=== PATIENT | male | born 1940 | race Caucasian/White ===

== ENCOUNTER → 2016-11-05 | Outpatient (REF) | payer MEDICARE, MEDICAID ==
[2016-11-05 18:21] LABS: CREATININE FOR GFR 1.34 MG/DL (0.70-1.30); GLOMERULAR FILTRATION RATE 55.5 (>42)
== END ==
LOC: M LAB REF 16:57
PROVIDERS: ATTEND Surgery Vascular Surgery
DX: Z48.812 Encounter for surgical aftercare following surgery on the circulatory system (principal)
CPT/HCPCS: 82565; 84520; G0463

== ENCOUNTER → 2016-12-15 | Outpatient (REF) | payer MEDICARE ==
[2016-12-15 18:12] LABS: BASO % 0.6 % (0.0-1.0); EOS # 0.2 K/mm3 (0.0-0.50); EOS % 3.7 % (0.0-3.0); LARGE UNSTAINED CELL # 0.1 K/mm3 (0.0-0.4); LARGE UNSTAINED CELL % 1.6 % (0.0-4.0); LYMPH # 1.1 K/mm3 (1.5-4.5); LYMPH % 20.7 % (24.0-44.0); MEAN CORPUSCULAR HEMOGLOBIN 31.9 pg (27.0-33.0); MEAN CORPUSCULAR HGB CONC 32.2 g/dl (32.0-36.5); MEAN CORPUSCULAR VOLUME 98.9 fl (80.0-96.0); MONO # 0.3 K/mm3 (0.0-0.8); MONO % 6.1 % (0.0-5.0); NEUTROPHILS # 3.3 K/mm3 (1.8-7.7); NEUTROPHILS % 67.2 % (36.0-66.0); PLATELET COUNT, AUTOMATED 215 k/mm3 (150-450); RED CELL DISTRIBUTION WIDTH 12.7 % (11.5-14.5); WHITE BLOOD COUNT 4.9 K/mm3 (4.0-10.0)
[2016-12-15 20:07] LABS: ALBUMIN 3.9 GM/DL (3.2-5.2); ALBUMIN/GLOBULIN RATIO 1.05 (1.00-1.93); ALKALINE PHOSPHATASE 71 U/L (45-117); ALT/SGPT 16 U/L (12-78); ANION GAP 7 MEQ/L (8-16); AST/SGOT 14 U/L (15-37); BILIRUBIN,TOTAL 0.5 MG/DL (0.2-1.0); BLOOD UREA NITROGEN 25 MG/DL (7-18); CALCIUM LEVEL 9.2 MG/DL (8.8-10.2); CARBON DIOXIDE LEVEL 28 MEQ/L (21-32); CHLORIDE LEVEL 101 MEQ/L (98-107); CHOLESTEROL LEVEL 138 MG/DL (<200); CREATININE FOR GFR 1.11 MG/DL (0.70-1.30); FREE T4 0.99 NG/DL (0.76-1.46); GLOMERULAR FILTRATION RATE > 60.0 (>42); GLUCOSE, FASTING 113 MG/DL (83-110); POTASSIUM SERUM 4.8 MEQ/L (3.5-5.1); SODIUM LEVEL 136 MEQ/L (136-145); TOTAL PROTEIN 7.6 GM/DL (6.4-8.2); TRIGLYCERIDES LEVEL 69 MG/DL (<150)
== END ==
LOC: M SFHCCAPE 11:42
PROVIDERS: ATTEND Nurse Practitioner
DX: E03.9 Hypothyroidism, unspecified (principal); E11.8 Type 2 diabetes mellitus with unspecified complications

== ENCOUNTER → 2017-06-10 | Outpatient (REF) | payer MEDICARE ==
[2017-06-10 19:46] LABS: ALBUMIN 3.7 GM/DL (3.2-5.2); ALBUMIN/GLOBULIN RATIO 1.03 (1.00-1.93); ALKALINE PHOSPHATASE 67 U/L (45-117); ALT/SGPT 21 U/L (12-78); ANION GAP 7 MEQ/L (8-16); AST/SGOT 11 U/L (15-37); BILIRUBIN,TOTAL 0.4 MG/DL (0.2-1.0); BLOOD UREA NITROGEN 26 MG/DL (7-18); CALCIUM LEVEL 9.2 MG/DL (8.8-10.2); CARBON DIOXIDE LEVEL 27 MEQ/L (21-32); CHLORIDE LEVEL 101 MEQ/L (98-107); CREATININE FOR GFR 1.19 MG/DL (0.70-1.30); FERRITIN 131 NG/ML (26-388); FREE T4 1.17 NG/DL (0.76-1.46); GLOMERULAR FILTRATION RATE > 60.0 (>42); GLUCOSE, FASTING 100 MG/DL (83-110); POTASSIUM SERUM 5.1 MEQ/L (3.5-5.1); SODIUM LEVEL 135 MEQ/L (136-145); TOTAL IRON BINDING CAPACITY 362 UG/DL (250-450); TOTAL PROTEIN 7.3 GM/DL (6.4-8.2)
[2017-06-10 20:00] LABS: BASO # 0.1 10^3/uL (0.0-0.2); BASO % 1.1 % (0.0-1.0); EOS # 0.2 10^3/uL (0.0-0.50); EOS % 3.4 % (0.0-3.0); IMMATURE GRANULOCYTE % 0.3 % (0-0); LYMPH # 1.5 10^3/uL (1.5-4.5); LYMPH % 23.5 % (24.0-44.0); MEAN CORPUSCULAR HEMOGLOBIN 32.6 pg (27.0-33.0); MEAN CORPUSCULAR HGB CONC 32.8 g/dl (32.0-36.5); MEAN CORPUSCULAR VOLUME 99.2 fl (80.0-96.0); MONO # 0.5 10^3/uL (0.0-0.8); MONO % 8.1 % (0.0-5.0); NEUTROPHILS # 3.9 10^3/uL (1.8-7.7); NEUTROPHILS % 63.6 % (36.0-66.0); PLATELET COUNT, AUTOMATED 219 10^3/uL (150-450); RED CELL DISTRIBUTION WIDTH 13.2 % (11.5-14.5); WHITE BLOOD COUNT 6.2 10^3/uL (4.0-10.0)
[2017-06-10 20:08] LABS: ADD MORPHOLOGY? NO
== END ==
LOC: M SFHCCAPE 10:27
PROVIDERS: ATTEND Physician Assistant
DX: Z01.818 Encounter for other preprocedural examination (principal); H26.9 Unspecified cataract; D64.9 Anemia, unspecified; Z12.5 Encounter for screening for malignant neoplasm of prostate; I10 Essential (primary) hypertension; Z79.899 Other long term (current) drug therapy
CPT/HCPCS: 80053; 81001; 82728; 83550; 84439; 84443; 85025; 87086; G0103

== ENCOUNTER → 2017-09-02 | Outpatient (REF) | payer MEDICARE ==
[2017-09-02 16:32] LABS: BASO # 0.1 10^3/uL (0.0-0.2); BASO % 1.2 % (0.0-1.0); EOS # 0.2 10^3/uL (0.0-0.50); EOS % 4.5 % (0.0-3.0); IMMATURE GRANULOCYTE % 0.6 % (0-0); LYMPH # 1.6 10^3/uL (1.5-4.5); LYMPH % 31.3 % (24.0-44.0); MEAN CORPUSCULAR HEMOGLOBIN 32.4 pg (27.0-33.0); MEAN CORPUSCULAR HGB CONC 32.6 g/dl (32.0-36.5); MEAN CORPUSCULAR VOLUME 99.2 fl (80.0-96.0); MONO # 0.4 10^3/uL (0.0-0.8); MONO % 8.2 % (0.0-5.0); NEUTROPHILS # 2.8 10^3/uL (1.8-7.7); NEUTROPHILS % 54.2 % (36.0-66.0); PLATELET COUNT, AUTOMATED 222 10^3/uL (150-450); RED CELL DISTRIBUTION WIDTH 13.2 % (11.5-14.5); WHITE BLOOD COUNT 5.1 10^3/uL (4.0-10.0)
[2017-09-02 17:05] LABS: ALBUMIN 4.1 GM/DL (3.2-5.2); ALBUMIN/GLOBULIN RATIO 1.11 (1.00-1.93); ALKALINE PHOSPHATASE 69 U/L (45-117); ALT/SGPT 17 U/L (12-78); ANION GAP 8 MEQ/L (8-16); AST/SGOT 14 U/L (7-37); BILIRUBIN,TOTAL 0.4 MG/DL (0.2-1.0); BLOOD UREA NITROGEN 21 MG/DL (7-18); CALCIUM LEVEL 8.6 MG/DL (8.8-10.2); CARBON DIOXIDE LEVEL 29 MEQ/L (21-32); CHLORIDE LEVEL 99 MEQ/L (98-107); CHOLESTEROL LEVEL 146 MG/DL (<200); CREATININE FOR GFR 1.16 MG/DL (0.70-1.30); FREE T4 1.02 NG/DL (0.76-1.46); GLOMERULAR FILTRATION RATE > 60.0 (>42); GLUCOSE, FASTING 99 MG/DL (83-110); POTASSIUM SERUM 4.7 MEQ/L (3.5-5.1); SODIUM LEVEL 136 MEQ/L (136-145); TOTAL PROTEIN 7.8 GM/DL (6.4-8.2); TRIGLYCERIDES LEVEL 165 MG/DL (<150)
== END ==
LOC: M SFHCCAPE 10:37
PROVIDERS: ATTEND Physician Assistant
DX: I10 Essential (primary) hypertension (principal); E03.9 Hypothyroidism, unspecified; E11.8 Type 2 diabetes mellitus with unspecified complications; E78.5 Hyperlipidemia, unspecified; R97.20 Elevated prostate specific antigen [PSA]

== ENCOUNTER → 2017-09-09 | Outpatient (REF) | payer MEDICARE | LOC: M SFHCCAPE 16:22 | DX: E11.8 Type 2 diabetes mellitus with unspecified complications (principal) | CPT/HCPCS: 82043 ==

== ENCOUNTER → 2018-01-04 | Outpatient (REF) | payer MEDICARE ==
[2018-01-04 16:30] LABS: BASO # 0.1 10^3/uL (0.0-0.2); BASO % 0.8 % (0.0-1.0); EOS # 0.2 10^3/uL (0.0-0.50); HEMATOCRIT 39.9 % (42.0-52.0); HEMOGLOBIN 13.3 g/dl (13.5-17.5); IMMATURE GRANULOCYTE % 0.2 % (0-3.0); LYMPH # 1.5 10^3/uL (1.5-4.5); LYMPH % 22.2 % (24.0-44.0); MEAN CORPUSCULAR HEMOGLOBIN 32.1 pg (27.0-33.0); MEAN CORPUSCULAR HGB CONC 33.3 g/dl (32.0-36.5); MEAN CORPUSCULAR VOLUME 96.4 fl (80.0-96.0); MONO # 0.6 10^3/uL (0.0-0.8); MONO % 8.5 % (0.0-5.0); NEUTROPHILS # 4.3 10^3/uL (1.8-7.7); NEUTROPHILS % 65.3 % (36.0-66.0); PLATELET COUNT, AUTOMATED 211 10^3/uL (150-450); RED BLOOD COUNT 4.14 10^6/uL (4.30-6.10); RED CELL DISTRIBUTION WIDTH 13.2 % (11.5-14.5); WHITE BLOOD COUNT 6.6 10^3/uL (4.0-10.0)
[2018-01-04 17:17] LABS: ESTIMATED AVERAGE GLUCOSE 117 MG/DL (60-110); HEMOGLOBIN A1c 5.7 %
[2018-01-04 17:24] LABS: ALBUMIN 4.1 GM/DL (3.2-5.2); ALBUMIN/GLOBULIN RATIO 1.03 (1.00-1.93); ALKALINE PHOSPHATASE 77 U/L (45-117); ALT/SGPT 17 U/L (12-78); ANION GAP 8 MEQ/L (8-16); AST/SGOT 16 U/L (7-37); BILIRUBIN,TOTAL 0.5 MG/DL (0.2-1.0); BLOOD UREA NITROGEN 19 MG/DL (7-18); CALCIUM LEVEL 9.1 MG/DL (8.8-10.2); CARBON DIOXIDE LEVEL 29 MEQ/L (21-32); CHLORIDE LEVEL 100 MEQ/L (98-107); CREATININE FOR GFR 1.11 MG/DL (0.70-1.30); FREE T4 1.08 NG/DL (0.76-1.46); GLOMERULAR FILTRATION RATE > 60.0 (>42); GLUCOSE, FASTING 109 MG/DL (70-100); POTASSIUM SERUM 4.7 MEQ/L (3.5-5.1); PROSTATIC SPECIFIC AG MONITOR 6.44 NG/ML (< 4.0); SODIUM LEVEL 137 MEQ/L (136-145); TOTAL PROTEIN 8.1 GM/DL (6.4-8.2)
== END ==
LOC: M SFHCCAPE 10:24
DX: I10 Essential (primary) hypertension (principal); E03.9 Hypothyroidism, unspecified; E11.8 Type 2 diabetes mellitus with unspecified complications; R97.20 Elevated prostate specific antigen [PSA]
CPT/HCPCS: 84443

== ENCOUNTER → 2018-01-07 | Outpatient (REF) | payer MEDICARE ==
[2018-01-08 12:39] LABS: MAU/CREAT RATIO 257.9 MCG/MG (0.0-30.0)
== END ==
LOC: M SFHCCAPE 16:25
DX: E11.8 Type 2 diabetes mellitus with unspecified complications (principal)
CPT/HCPCS: 82043

== ENCOUNTER → 2019-02-01 | Outpatient (REF) | payer MEDICARE ==
[2019-02-01 17:20] LABS: ALBUMIN 3.8 GM/DL (3.2-5.2); ALT/SGPT 17 U/L (12-78); BILIRUBIN,TOTAL 0.5 MG/DL (0.2-1.0); BLOOD UREA NITROGEN 19 MG/DL (7-18); CALCIUM LEVEL 9.1 MG/DL (8.8-10.2); CARBON DIOXIDE LEVEL 27 MEQ/L (21-32); CHLORIDE LEVEL 98 MEQ/L (98-107); CHOLESTEROL LEVEL 180 MG/DL (<200); CHOLESTEROL RISK RATIO 3.461 (<5); CREATININE FOR GFR 1.17 MG/DL (0.70-1.30); FREE T4 1.03 NG/DL (0.76-1.46); GLOMERULAR FILTRATION RATE > 60.0 (>42); GLUCOSE, FASTING 115 MG/DL (70-100); HDL CHOLESTEROL 52 MG/DL (>40); LDL CHOLESTEROL 106 MG/DL (<100); NON-HDL-C 128 MG/DL; POTASSIUM SERUM 4.7 MEQ/L (3.5-5.1); PROSTATIC SPECIFIC AG MONITOR 7.59 NG/ML (< 4.00); SODIUM LEVEL 135 MEQ/L (136-145); TOTAL PROTEIN 7.4 GM/DL (6.4-8.2); TRIGLYCERIDES LEVEL 109 MG/DL (<150)
[2019-02-01 17:36] LABS: BASO # 0.1 10^3/uL (0.0-0.2); EOS # 0.2 10^3/uL (0.0-0.50); EOS % 3.5 % (0.0-3.0); HEMATOCRIT 43.8 % (42.0-52.0); HEMOGLOBIN 14.4 g/dl (13.5-17.5); LYMPH # 1.3 10^3/uL (1.5-4.5); LYMPH % 25.6 % (24.0-44.0); MEAN CORPUSCULAR HEMOGLOBIN 33.2 pg (27.0-33.0); MEAN CORPUSCULAR HGB CONC 32.9 g/dl (32.0-36.5); MEAN CORPUSCULAR VOLUME 100.9 fl (80.0-96.0); MONO # 0.5 10^3/uL (0.0-0.8); MONO % 9.6 % (0.0-5.0); NEUTROPHILS # 3.1 10^3/uL (1.8-7.7); NEUTROPHILS % 59.9 % (36.0-66.0); PLATELET COUNT, AUTOMATED 216 10^3/uL (150-450); RED BLOOD COUNT 4.34 10^6/uL (4.30-6.10); WHITE BLOOD COUNT 5.2 10^3/uL (4.0-10.0)
[2019-02-01 20:18] LABS: HEMOGLOBIN A1c 5.5 %
== END ==
LOC: M SFHCCAPE 10:36
PROVIDERS: ATTEND Physician Assistant
DX: E78.5 Hyperlipidemia, unspecified (principal); E11.8 Type 2 diabetes mellitus with unspecified complications; R97.20 Elevated prostate specific antigen [PSA]

== ENCOUNTER → 2019-02-03 | Outpatient (REF) | payer MEDICARE ==
[2019-02-03 17:22] LABS: CREATININE, URINE 95.1 MG/DL; MAU/CREAT RATIO 292.3 MCG/MG (0.0-30.0)
== END ==
LOC: M SFHCCAPE 10:45
PROVIDERS: ATTEND Physician Assistant
DX: E11.8 Type 2 diabetes mellitus with unspecified complications (principal)

== ENCOUNTER → 2020-10-24 | Outpatient (REF) | payer MEDICARE ==
[2020-10-24 16:31] LABS: BASO # 0.1 10^3/uL (0.0-0.2); EOS # 0.3 10^3/uL (0.0-0.5); EOS % 4.7 % (0.0-3.0); HEMATOCRIT 42.7 % (42.0-52.0); HEMOGLOBIN 13.9 g/dl (13.5-17.5); LYMPH # 1.3 10^3/uL (1.5-5.0); LYMPH % 22.7 % (24.0-44.0); MEAN CORPUSCULAR HEMOGLOBIN 32.6 pg (27.0-33.0); MEAN CORPUSCULAR HGB CONC 32.6 g/dl (32.0-36.5); MONO # 0.5 10^3/uL (0.0-0.8); MONO % 8.4 % (0.0-5.0); NEUTROPHILS # 3.6 10^3/uL (1.5-8.5); NEUTROPHILS % 62.9 % (36.0-66.0); PLATELET COUNT, AUTOMATED 211 10^3/uL (150-450); RED BLOOD COUNT 4.27 10^6/uL (4.30-6.10); WHITE BLOOD COUNT 5.7 10^3/uL (4.0-10.0)
[2020-10-24 16:49] LABS: ALBUMIN 3.5 GM/DL (3.2-5.2); ALT/SGPT 14 U/L (12-78); BILIRUBIN,TOTAL 0.5 MG/DL (0.2-1.0); BLOOD UREA NITROGEN 26 MG/DL (7-18); CALCIUM LEVEL 9.2 MG/DL (8.8-10.2); CARBON DIOXIDE LEVEL 29 MEQ/L (21-32); CHLORIDE LEVEL 103 MEQ/L (98-107); CHOLESTEROL LEVEL 108 MG/DL (<200); CHOLESTEROL RISK RATIO 2.769 (<5); CREATININE FOR GFR 1.23 MG/DL (0.70-1.30); FREE T4 1.07 NG/DL (0.76-1.46); GLOMERULAR FILTRATION RATE > 60.0 (>42); GLUCOSE, FASTING 98 MG/DL (70-100); HDL CHOLESTEROL 39 MG/DL (>40); LDL CHOLESTEROL 45 MG/DL (<100); NON-HDL-C 69 MG/DL; POTASSIUM SERUM 4.2 MEQ/L (3.5-5.1); PROSTATIC SPECIFIC AG MONITOR 7.54 NG/ML (< 4.00); SODIUM LEVEL 140 MEQ/L (136-145); THYROID STIMULATING HORMONE 0.528 uIU/ML (0.358-3.740); TOTAL PROTEIN 7.8 GM/DL (6.4-8.2); TRIGLYCERIDES LEVEL 121 MG/DL (<150)
[2020-10-24 16:54] LABS: FOLATE 4.9 NG/ML; VITAMIN B12 LEVEL 516 PG/ML
[2020-10-24 17:09] LABS: MALB URINE SIEMENS 62.6 MG/L; MAU/CREAT RATIO 39.1 MCG/MG (0.0-30.0)
[2020-10-24 17:51] LABS: HEMOGLOBIN A1c 5.3 %
== END ==
LOC: M LAB REF 15:56
PROVIDERS: ATTEND Physician Assistant
DX: E11.8 Type 2 diabetes mellitus with unspecified complications (principal); I10 Essential (primary) hypertension; E78.5 Hyperlipidemia, unspecified; E03.9 Hypothyroidism, unspecified; R97.20 Elevated prostate specific antigen [PSA]

== ENCOUNTER 2020-11-30 13:30 | Inpatient (IN) | payer MEDICARE ==
[~2020-11-30] VITALS: Ht 185.4 cm; Wt 97.1 kg
--- NOTE | 2020-11-30 14:21 | REP ---
INDICATION: Altered Mental Status. COMPARISON: No comparison study. TECHNIQUE: Portable upright AP chest radiographs. Two views.. FINDINGS: A bipolar pacemaker is seen in the right heart view of the left side. There is a small right pleural effusion with pleural thickening along the right lateral chest wall and blunting of the pleural angle. There is some fissural thickening on the right. Pleural angle on the left is sharp.. Pulmonary vasculature is somewhat cephalized. A bipolar pacemaker is seen in the right heart view of the left side. Heart size is borderline. There are degenerative changes in the thoracic spine. No infiltrate is seen. IMPRESSION: Right pleural effusion cardiomegaly with pacemaker. Vascular cephalization. No evidence of pulmonary edema or infiltrate.. <Electronically signed by Bill Stewart > 11/30/20 [id number]
[2020-11-30 15:29] LABS: BASO % 0.1 % (0.0-1.0); HEMOGLOBIN 12.2 g/dl (13.5-17.5); LYMPH # 0.7 10^3/uL (1.5-5.0); LYMPH % 5.3 % (24.0-44.0); MEAN CORPUSCULAR HEMOGLOBIN 31.1 pg (27.0-33.0); MEAN CORPUSCULAR HGB CONC 32.1 g/dl (32.0-36.5); MEAN CORPUSCULAR VOLUME 96.9 fl (80.0-96.0); MONO % 7.4 % (2.0-8.0); NEUTROPHILS # 11.6 10^3/uL (1.5-8.5); NEUTROPHILS % 86.2 % (36.0-66.0); PLATELET COUNT, AUTOMATED 329 10^3/uL (150-450); RED BLOOD COUNT 3.92 10^6/uL (4.30-6.10); WHITE BLOOD COUNT 13.5 10^3/uL (4.0-10.0)
[2020-11-30 16:02] LABS: ALBUMIN 2.5 GM/DL (3.2-5.2); ALT/SGPT 17 U/L (12-78); BILIRUBIN,DIRECT 0.5 MG/DL (0.0-0.2); BILIRUBIN,TOTAL 0.8 MG/DL (0.2-1.0); BLOOD UREA NITROGEN 35 MG/DL (7-18); CALCIUM LEVEL 8.4 MG/DL (8.8-10.2); CARBON DIOXIDE LEVEL 27 MEQ/L (21-32); CHLORIDE LEVEL 104 MEQ/L (98-107); CK-MB VALUE MASS 1.3 NG/ML (<3.6); CPK CREATINE PHOSPHOKINASE 623 U/L (39-308); CREATININE FOR GFR 1.51 MG/DL (0.70-1.30); ETHYL ALCOHOL (ETHANOL) < 0.003 % (0.000-0.010); GLOMERULAR FILTRATION RATE 47.8 (>42); GLUCOSE, FASTING 205 MG/DL (70-100); MB/CK RELATIVE INDEX 0.21 (< OR =4); POTASSIUM SERUM 4.4 MEQ/L (3.5-5.1); SODIUM LEVEL 137 MEQ/L (136-145); THYROID STIMULATING HORMONE 0.689 uIU/ML (0.358-3.740); TOTAL PROTEIN 7.4 GM/DL (6.4-8.2); TROPONIN I < 0.02 NG/ML (< 0.10)
[2020-11-30] MEDS ORDERED: GABA-282 PO (16:59)
[2020-11-30] MEDS ORDERED: TAMS1CAP17 PO (16:59)
[2020-11-30] MEDS ORDERED: LISI10TA22 PO (16:59)
[2020-11-30] MEDS ORDERED: COMB0.2S OS (16:59)
[2020-11-30] MEDS ORDERED: XARE20TA PO (16:59)
[2020-11-30] MEDS ORDERED: METF500T13 PO (16:59)
[2020-11-30] MEDS ORDERED: AMLO1TAB25 PO (16:59)
[2020-11-30] MEDS ORDERED: SIMV10TA21 PO (16:59)
[2020-11-30] MEDS ORDERED: LEVO88TA3 PO (16:59)
[2020-11-30] MEDS ORDERED: NS 1,000 ML IV ONE (17:05)
[2020-11-30 17:16] LABS: AMPHETAMINES LEVEL URINE NEGATIVE (NEGATIVE); BARBITURATES URINE NEGATIVE (NEGATIVE); BENZODIAZEPINES URINE NEGATIVE (NEGATIVE); CANNABINOIDS URINE NEGATIVE (NEGATIVE); COCAINE METABOLITE URINE NEGATIVE (NEGATIVE); METHADONE URINE NEGATIVE (NEGATIVE); OPIATES URINE NEGATIVE (NEGATIVE); PHENCYCLIDINE URINE NEGATIVE (NEGATIVE)
[2020-11-30 18:16] LABS: RSV AMPLIFICATION NEGATIVE (NEGATIVE)
--- NOTE | 2020-11-30 18:26 | REPVR ---
PROCEDURE INFORMATION: Exam: CT Abdomen And Pelvis Without Contrast Exam date and time: 11/30/2020 5:30 PM Age: 80 years old Clinical indication: Other: Obstruction TECHNIQUE: Imaging protocol: Computed tomography of the abdomen and pelvis without contrast. Radiation optimization: All CT scans at this facility use at least one of these dose optimization techniques: automated exposure control; mA and/or kV adjustment per patient size (includes targeted exams where dose is matched to clinical indication); or iterative reconstruction. COMPARISON: No relevant prior studies available. FINDINGS: Pleural spaces: Small to moderate right pleural effusion. Compressive atelectasis right lung base. Small loculated pleural effusion left lung base. Liver: Normal. No mass. Gallbladder and bile ducts: Normal. No calcified stones. No ductal dilation. Pancreas: Normal. No ductal dilation. Spleen: The spleen demonstrates punctate calcifications, consistent with remote granulomatous organism exposure. Adrenal glands: There is bilateral adrenal hyperplasia. Kidneys and ureters: Bilateral nonobstructive renal calculi. Stomach and bowel: There is increased feces throughout the colon consistent with constipation. Moderate diverticulosis is present in the distal colon. No diverticulitis. Appendix: No evidence of appendicitis. Intraperitoneal space: Unremarkable. No free air. No significant fluid collection. Vasculature: 3.4 cm infrarenal abdominal aortic aneurysm tapers before the bifurcation. There is severe atherosclerotic calcification of the coronary arteries. Lymph nodes: Unremarkable. No enlarged lymph nodes. Urinary bladder: Unremarkable as visualized. Reproductive: Unremarkable as visualized. Bones/joints: Severe central spinal stenosis L2-L3, L3-L4, L4-L5 and moderate to severe central spinal stenosis L5-S1. Status post total hip replacement on the left. Soft tissues: Bilateral inguinal hernias, right greater than left. No incarceration. Other findings: Osteoporosis. IMPRESSION: 1. 3.4 cm infrarenal abdominal aortic aneurysm tapers before the bifurcation. 2. Bilateral nonobstructive renal calculi. 3. There is bilateral adrenal hyperplasia. 4. Bilateral inguinal hernias, right greater than left. No incarceration. 5. There is increased feces throughout the colon consistent with constipation. 6. Moderate diverticulosis is present in the distal colon. No diverticulitis. Electronically signed by: Herman Zhao On 11/30/2020 18:26:09 PM
--- NOTE | 2020-11-30 18:54 | REP ---
INDICATION: edema COMPARISON: None. TECHNIQUE: Duplex ultrasound of the lower extremity veins bilaterally. FINDINGS: The deep veins demonstrate normal compression, normal Doppler color flow and normal Doppler waveforms with respiration augmentation from the popliteal veins to the common femoral veins bilaterally. However, there are multiple areas of intimal calcification throughout the the right deep venous system compatible with chronic nonocclusive thrombus. Similarly, there are focal areas of intimal calcification throughout the deep venous system on the left compatible with chronic nonocclusive thrombus. Also, there is focal intraluminal echogenicity in the mid left femoral vein compatible with chronic nonocclusive organizing thrombus. IMPRESSION: There are findings compatible with chronic bilateral nonocclusive thrombus as described. There is no occlusive thrombus on the right or the left. <Electronically signed by Kirby Abel > 11/30/20 [id number]
[2020-11-30] MEDS ORDERED: MOM 30ML SUSPENSION UDC PO PRN (19:10)
[2020-11-30] MEDS ORDERED: ACETAMINOPHEN TAB 650MG DOSE (2X325MG) PO PRN (19:10)
[2020-11-30] MEDS ORDERED: GLUCOSE 4GM CHEW TABLET PO PRN (19:10)
[2020-11-30] MEDS ORDERED: GLUCAGON INJ 1MG VIAL SC PRN (19:10)
[2020-11-30] MEDS ORDERED: DEXTROSE 50% 50 ML SYRINGE IV PRN (19:10)
[2020-11-30] MEDS ORDERED: MAALOX 30 ML SUSP *UDC PO PRN (19:10)
--- NOTE | 2020-11-30 19:33 | HPEPDOC ---
[facility] Medical History & Physical Date of Admission Nov 30, 2020 Date of Service: Nov 30, 2020 History and Physical CHIEF COMPLAINT: failure to thrive HISTORY OF PRESENT ILLNESS: 80 yo M with a hx of COPD, HTN, DM2, Afib (s/p pacemaker 2015) on xarelto neuropathy, PAD (s/p R fem/pop bypass 2015), skin cancer, brought to [facility] by EMS, after his family became concerned over his overall state of health and significant failure to thrive. He was found by family to be sitting in his armchair, disheveled, and lethargic. Patient's sister is Patt Ordaz ([phone]), lives in [place], states that he has been living in this state for over 5 years, has refused to see physicians, comply with medical management. His living situation declined further after the of his son at age 47. She states that he has made several comments about not wanting to be alive any more. Patient denies SI, he has no plan and states that he has his dog to take care of which keeps him going. He receives meals on wheels, and has someone come feed his dog twice per day. Patient has had poor PO intake for months. No BM for over 2 months. He denies CP, SOB, palpitations, n/v/d, fevers or chills. He repots severe low back on leaning forward, without radiation down to legs. He is unable to walk, and sits in his chair daily, and uses a bedpan. Significant doubts about medication compliance. Vitals reviewed. HR 83. RR 18. BP 134/73. Pulse ox 97%.Lab work was reviewed. WBC 13.5. Neutrophil percentage 86.2. Hgb 12.2. Hct 38.0. Na 137. K 4.4. BUN 35. CR 1.51. Fasting glucose 205. Lactic acid 2.8 down to 1.6 after fluid bolus. Ammonia < 10. CK 623. UA positive for trace leuk esterase, pyuria. PAST MEDICAL HISTORY: HYPERTENSION GLAUCOMA COPD DIABETES NEUROPATHY DUAL CHAMBER PACEMAKER IMPLANTATION 03/2016-[facility] C[facility] HX OF SKIN CANCER HYPERLIPIDEMIA ATRIAL FIBRILLATION on Xarelto CATARACTS-DR. MARK CHICAS PERIPHERAL VASCULAR DISEASE PAST SURGICAL HISTORY: LEFT HIP REPLACEMENT 2004 RIGHT FEM POP BYPASS FOR PAD DR CASTILLO NUÑEZ 2015 [address] SECOND TOE REMOVAL DR CASTILLO NUÑEZ 01/2016 PACEMAKER 04/03/16 ARTERIOGRAM 2017 MELANOMA EXCISION LEFT LATERAL FOREHEAD 07/27/17 SOCIAL HISTORY: Lives alone. Sister very concerned. He has sat and slept in an arch for years. Unable to care for self. Former smoker 30 pack year hx. Denies etoh use. Denies illicits FAMILY HISTORY: Son at agr 47, unknown cause ALLERGIES: Please see below. REVIEW OF SYSTEMS: 10 point ROS completed, relevant findings are noted in HPI. HOME MEDICATIONS: Please see below. PHYSICAL EXAMINATION: VITAL SIGNS: please see below General: NAD, comfortable HEENT: PERRLA, EOMI, sclerae clear Neck: supple, normal ROM, no JVD Respiratory: bilateral wheeze on auscultation, no rales, no crackles CVS: RRR, normal S1, S2, no murmurs Abdo: soft, no masses, no hepatosplenomegaly, BS+, no rebound tenderness ALIVIA: large amount of stool in rectal vault, voluntary anal tone present but weakened. Normal sensation, no saddle anesthesia. No blood in rectum. No hemorrhoids seen. Extremities: bilateral lower extremity edema, severe xerosis and keratosis, particularly affecting distal feet. R 2nd toe amputation. Concern for dry gangrene. Back: deep tissue injury noted on sacrum, with a central stage 1 ulcer overlying coccyx. MSK: no joint deformities, normal ROM Neuro: no focal neuro deficits, moving all 4 extremities, CN2-12 intact. Psych: calm, cooperative, AAO x 3 LABORATORY DATA: See below. IMAGING: Bilateral Lower Extremity Venous Duplex (11/30/20): There are findings compatible with chronic bilateral nonocclusive thrombus as described. There is no occlusive thrombus on the right or the left. Renal US (11/30/20): 1. Small nonshadowing echogenic focus lower pole of the right kidney measures 5 mm possibly representing a nonobstructive calculus. Finding consistent with findings demonstrated on prior CT abdomen pelvis demonstrating bilateral nonobstructive renal calculi. 2. Otherwise unremarkable CT abdomen pelvis wo contrast (11/30/20): 1. 3.4 cm infrarenal abdominal aortic aneurysm tapers before the bifurcation. 2. Bilateral nonobstructive renal calculi. 3. There is bilateral adrenal hyperplasia. 4. Bilateral inguinal hernias, right greater than left. No incarceration. 5. There is increased feces throughout the colon consistent with constipation. 6. Moderate diverticulosis is present in the distal colon. No diverticulitis. CXR (11/30/20): A bipolar pacemaker is seen in the right heart view of the left side. There is a small right pleural effusion with pleural thickening along the right lateral c hest wall and blunting of the pleural angle. There is some fissural thickening on the right. Pleural angle on the left is sharp.. Pulmonary vasculature is somewhat cephalized. A bipolar pacemaker is seen in the right heart view of the left side. Heart size is borderline. There are degenerative changes in the thoracic spine. No infiltrate is seen. IMPRESSION: Right pleural effusion cardiomegaly with pacemaker. Vascular cephalization. No evidence of pulmonary edema or infiltrate. MICROBIOLOGY: Please see below. ASSESSMENT: 80 yo M with a hx of COPD, HTN, DM2, Afib (s/p pacemaker 2015) on xarelto neuropathy, PAD (s/p R fem/pop bypass 2015), skin cancer, brought to [facility] by EMS, after his family became concerned over his overall state of health and significant failure to thrive. Admitted for management of CELESTINO, constipation, and failure to thrive. . PLAN: Bilateral Chronic DVTs, non occlusive - takes xarelto 20 mg daily - concern about medication compliance - resume xarelto R pleural effusion - possibly related to underlying CHF - obtain 2D echo - check CT chest wo contrast Bilateral LE edema, R > L - in context of chronic DVTs - check 2D echo Hypoxia 2/2 COPD exacerbation vs PE vs CHF - not on Home O2 - inhalers. 2D Echo. AC xarelto - maintain O2 > 90% - given bilateral non oclussive DVTs, risk of PE is high - given CELESTINO on possible CKD, precludes CT Angiogram - resume Xarelto Afib s/p pacemaker - AC with xarelto 20 mg daily - paced rhythm, rate controlled - check 2D echo AAA (3.4 cm), infrarenal - refer to vascular surgery for monitoring CELESTINO/Rhabdomyolysis - CK 623 - Renal US reviewed. - c/w gentle IVF at 80 cc/hr - trend CK Bilateral adrenal hyperplasia - check renin, aldosterone DM2 with neuropathy - ISS, AC and HS - CC diet - check a1c, lipid panel - hold gabapentin until CELESTINO improves - c/w simvastatin 10 mg daily COPD in mild acute exacerbation - wheezing on exam, hypoxic to 3L - per PCP notes, has been having difficulty with inhaler compliance - albuterol - proair - symbicort PAD with severe xerosis and keratosis of bilateral legs - podiatry eval, consult placed with Dr. Muñoz Constipation - significant stool burden on CT imaging, and on ALIVIA - miralax daily - dulcolax suppository - soap suds enema Chronic back pain/Severe spinal stenosis - 04/23 back pain, severely impeding mobility HTN - home meds: amlodipine 10 mg, lisinopril 10 mg daily - hold lisinopril 2/ CELESTINO - resume amlodipine, monitor BP Hypothyroidism - takes levothyroxine 88 mc daily BPH - c/w flomax DVT ppx: xarelto Dispo: pending clinical improvement. PFS consulted for likely need of placement. Vital Signs Vital Signs Date Time Temp Pulse Resp B/P (MAP) Pulse Ox O2 Delivery O2 Flow Rate FiO2 11/30/20 17:02 4.0 11/30/20 16:30 61 20 97 Room Air 11/30/20 15:00 151/77 (101) Laboratory Data Labs 24H Laboratory Tests 2 11/30/20 14:03: Anion Gap 6L, Glomerular Filtration Rate 47.8, Lactic Acid Level 2.8*H, Calcium Level 8.4L, Total Bilirubin 0.8, Direct Bilirubin 0.5H, Aspartate Amino Transf (AST/SGOT) 22, Alanine Aminotransferase (ALT/SGPT) 17, Alkaline Phosphatase 94, Total Creatine Kinase 623H, Creatine Kinase MB 1.3, Creatine Kinase MB Relative Index 0.21, Troponin I < 0.02, Total Protein 7.4, Albumin 2.5L, Albumin/Globulin Ratio 0.5, Thyroid Stimulating Hormone (TSH) 0.689, Urine Opiates Screen NEGATIVE, Urine Methadone Screen NEGATIVE, Urine Barbiturates Screen NEGATIVE, Urine Phencyclidine Screen NEGATIVE, Urine Amphetamines Screen NEGATIVE, Urine Benzodiazepines Screen NEGATIVE, Urine Cocaine Metabolite Screen NEGATIVE, Urine Cannabinoids Screen NEGATIVE, Ethyl Alcohol Level < 0.003 11/30/20 14:04: Immature Granulocyte % (Auto) 1.0, Neutrophils (%) (Auto) 86.2H, Lymphocytes (%) (Auto) 5.3L, Monocytes (%) (Auto) 7.4, Eosinophils (%) (Auto) 0.0, Basophils (%) (Auto) 0.1, Neutrophils # (Auto) 11.6H, Lymphocytes # (Auto) 0.7L, Monocytes # (Auto) 1.0H, Eosinophils # (Auto) 0.0, Basophils # (Auto) 0.0, Nucleated Red Blood Cells % (auto) 0.0, Urine Color EDDY, Urine Appearance CLOUDYH, Urine pH 5.0, Urine Specific [place] 1.021, Urine Protein 2+H, Urine Glucose (UA) 1+H, Urine Ketones NEGATIVE, Urine Blood 1+H, Urine Nitrite NEGATIVE, Urine Bilirubin 1+H, Urine Urobilinogen 4.0H, Urine Leukocyte Esterase TRACEH, Urine WBC (Auto) 6H, Urine RBC (Auto) 3, Urine Hyaline Casts (Auto) 0, Urine Bacteria (Auto) 1+H, Urine Squamous Epithelial Cells 1, Urine Amorphous Sediment SMALLH, Urine Mucus (Auto) SMALL, Urine Sperm (Auto) , Ammonia < 10 11/30/20 17:31: Coronavirus (COVID-19)(PCR) NEGATIVE, Influenza Type A (RT-PCR) NEGATIVE, Influenza Type B (RT-PCR) NEGATIVE, Respiratory Syncytial Virus (PCR) NEGATIVE CBC/BMP Laboratory Tests 11/30/20 14:03 11/30/20 14:04 Microbiology Microbiology 11/30/20 Urine Culture, Received Pending 11/30/20 Blood Culture, Received Pending Home Medications Scheduled Amlodipine Besylate (Amlodipine Besylate) 10 Mg Tablet, 10 MG PO DAILY Gabapentin (Gabapentin) 300 Mg Capsule, 300 MG PO BID Levothyroxine Sodium (Levothyroxine Sodium) 88 Mcg Tablet, 88 MCG PO DAILY Lisinopril (Lisinopril) 10 Mg Tablet, 30 MG PO DAILY Metformin HCl (Metformin HCl) 500 Mg Tablet, 500 MG PO BIDWM Rivaroxaban (Xarelto) 20 Mg Tablet, 20 MG PO DAILY Simvastatin (Simvastatin) 10 Mg Tablet, 10 MG PO QHS Tamsulosin Hcl (Tamsulosin HCl) 0.4 Mg Capsule, 0.4 MG PO DAILY Allergies Coded Allergies: Sulfa (Sulfonamide Antibiotics) (Verified Allergy, Unknown, 11/30/20) A-FIB/CHADSVASC A-FIB History Current/History of A-Fib/PAF?: No Current PO Anticoag Therapy: No CHAITANYA PEDERSON MD Nov 30, 2020 19:33
--- NOTE | 2020-11-30 20:01 | REPVR ---
PROCEDURE INFORMATION: Exam: US Retroperitoneal Limited, Kidneys Exam date and time: 11/30/2020 7:56 PM Age: 80 years old Clinical indication: Abnormal findings; Abnormal lab test; Abnormal kidney function lab tests; Additional info: Efraín TECHNIQUE: Imaging protocol: Real-time ultrasound of the retroperitoneum with image documentation. Examination was focused on the kidneys. COMPARISON: CT ABD PELVIS W/O CONTRAST 11/30/2020 5:39 PM FINDINGS: Right kidney: Right kidney measures 12.5 x 5 x 6.3 cm. Small nonshadowing echogenic focus lower pole of the right kidney measures 5 mm possibly representing a nonobstructive calculus. Left kidney: Left kidney measures 12.2 x 5 x 6.7 cm. Bladder: Bladder unremarkable. No ureteral jets demonstrated. IMPRESSION: 1. Small nonshadowing echogenic focus lower pole of the right kidney measures 5 mm possibly representing a nonobstructive calculus. Finding consistent with findings demonstrated on prior CT abdomen pelvis demonstrating bilateral nonobstructive renal calculi. 2. Otherwise unremarkable. Electronically signed by: Herman Zhao On 11/30/2020 20:01:34 PM
[2020-11-30] MEDS: DOCUSATE SODIUM 100MG CAPSULE PO SCH (21:00)
[2020-11-30] MEDS: HumaLOG INSULIN (NovoLOG) PER UNIT SC SCH (21:00)
[2020-11-30 22:00] VITALS: BP 165/72
[2020-12-01] MEDS ORDERED: UNRESOLVED CLARIFICATION ENTRY XX SCH (00:01)
[2020-12-01] MEDS: LEVOTHYROXINE 88MCG TABLET (0.088 MG) PO SCH (05:40)
[2020-12-01 06:00] VITALS: BP 134/63
[2020-12-01 07:05] LABS: BASO % 0.2 % (0.0-1.0); EOS % 0.3 % (0.0-3.0); HEMATOCRIT 32.1 % (42.0-52.0); HEMOGLOBIN 10.3 g/dl (13.5-17.5); LYMPH # 0.9 10^3/uL (1.5-5.0); LYMPH % 7.7 % (24.0-44.0); MEAN CORPUSCULAR HEMOGLOBIN 31.2 pg (27.0-33.0); MEAN CORPUSCULAR HGB CONC 32.1 g/dl (32.0-36.5); MEAN CORPUSCULAR VOLUME 97.3 fl (80.0-96.0); MONO # 0.8 10^3/uL (0.0-0.8); NEUTROPHILS # 9.9 10^3/uL (1.5-8.5); PLATELET COUNT, AUTOMATED 293 10^3/uL (150-450); WHITE BLOOD COUNT 11.8 10^3/uL (4.0-10.0)
[2020-12-01 07:15] LABS: HEMOGLOBIN A1c 5.9 %
[2020-12-01 07:22] LABS: ALT/SGPT 16 U/L (12-78); BILIRUBIN,TOTAL 0.6 MG/DL (0.2-1.0); BLOOD UREA NITROGEN 27 MG/DL (7-18); CALCIUM LEVEL 8.2 MG/DL (8.8-10.2); CARBON DIOXIDE LEVEL 27 MEQ/L (21-32); CHLORIDE LEVEL 106 MEQ/L (98-107); CREATININE FOR GFR 1.04 MG/DL (0.70-1.30); GLOMERULAR FILTRATION RATE > 60.0 (>42); GLUCOSE, FASTING 154 MG/DL (70-100); MAGNESIUM LEVEL 1.9 MG/DL (1.8-2.4); POTASSIUM SERUM 4.4 MEQ/L (3.5-5.1); SODIUM LEVEL 139 MEQ/L (136-145); TOTAL PROTEIN 6.3 GM/DL (6.4-8.2)
[2020-12-01] MEDS: HumaLOG INSULIN (NovoLOG) PER UNIT SC SCH ×4 (07:30→21:00)
[2020-12-01] MEDS: TAMSULOSIN 0.4 MG CAP PO SCH (08:45)
[2020-12-01] MEDS: MIRALAX *UNIT DOSE* 17GM PACKET PO SCH (08:45)
[2020-12-01] MEDS: predniSONE 20 MG TAB PO SCH (08:45)
[2020-12-01] MEDS: DOCUSATE SODIUM 100MG CAPSULE PO SCH ×2 (08:46→21:00)
[2020-12-01] MEDS: BISACODYL 10 MG SUPP PR SCH ×3 (08:46→21:00)
--- NOTE | 2020-12-01 09:30 | REP ---
INDICATION: ulceration COMPARISON: Right foot series dated 10/25/2015. TECHNIQUE: Four views of each foot. FINDINGS: Right foot: There is demineralization. There has been amputation of the 2nd digit at the base of the proximal phalange as an interval change. 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 There is advanced great toe/sesamoid osteoarthritis as previously. No acute fracture or dislocation. No lytic, blastic or destructive changes. There is a marked soft tissue edema over the dorsum as an interval change. There are surgical clips in the soft tissues over the dorsum as an interval change. There are calcaneal plantar and Achilles spurs, unchanged. Left foot: No comparison. There is no soft tissue edema. There is mild great toe MTP P osteoarthritis. There are no lytic, blastic or destructive skeletal changes. No fracture or dislocation. There is a small calcaneal plantar spur. IMPRESSION: Right foot 2nd digit amputation. Right foot advanced great toe osteoarthritis as described. Right foot marked soft tissue edema over the dorsum and surgical clips in the soft tissues over the dorsum. Left foot mild great toe osteoarthritis as described. <Electronically signed by Kirby Abel > 12/01/20 0938
[2020-12-01 14:00] VITALS: BP 132/62
--- NOTE | 2020-12-01 17:36 | IPNPDOC ---
Date Seen The patient was seen on 12/01/20. Progress Note SUBJECTIVE: seen and examined. no events. doing well. comfortable. not motivated to get better. denies suicidal ideation, states OBJECTIVE PHYSICAL EXAMINATION: General: NAD, comfortable HEENT: PERRLA, EOMI, sclerae clear Neck: supple, normal ROM, no JVD Respiratory: bilateral wheeze on auscultation, no rales, no crackles CVS: RRR, normal S1, S2, no murmurs Abdo: soft, no masses, no hepatosplenomegaly, BS+, no rebound tenderness ALIVIA: large amount of stool in rectal vault, voluntary anal tone present but weakened. Normal sensation, no saddle anesthesia. No blood in rectum. No hemorrhoids seen. Extremities: bilateral lower extremity edema, severe xerosis and keratosis, particularly affecting distal feet. R 2nd toe amputation. Concern for dry gangrene. Back: deep tissue injury noted on sacrum, with a central stage 1 ulcer overlying coccyx. MSK: no joint deformities, normal ROM Neuro: no focal neuro deficits, moving all 4 extremities, CN2-12 intact. Psych: calm, cooperative, AAO x 3 LABORATORY DATA, IMAGING STUDIES, MICROBIOLOGY: Please see below. Echocardiogram: echo ordered, pending. DVT prophylaxis ordered?: xarelto ASSESSMENT AND PLAN: 80 yo M with a hx of COPD, HTN, DM2, Afib (s/p pacemaker 2015) on xarelto neuropathy, PAD (s/p R fem/pop bypass 2015), skin cancer, b rought to [facility] by EMS, after his family became concerned over his overall state of health and significant failure to thrive. Admitted for management of CELESTINO, constipation, and failure to thrive. . PLAN: Bilateral Chronic DVTs, non occlusive - takes xarelto 20 mg daily - concern about medication compliance - resume xarelto R pleural effusion - possibly related to underlying CHF - obtain 2D echo - check CT chest wo contrast Bilateral LE edema, R > L - in context of chronic DVTs - check 2D echo Hypoxia 2/2 COPD exacerbation vs PE vs CHF - not on Home O2 - inhalers. 2D Echo. AC xarelto - maintain O2 > 90% - given bilateral non oclussive DVTs, risk of PE is high - given CELESTINO on possible CKD, precludes CT Angiogram - resume Xarelto Afib s/p pacemaker - AC with xarelto 20 mg daily - paced rhythm, rate controlled - check 2D echo AAA (3.4 cm), infrarenal - refer to vascular surgery for monitoring Depression, new onset - consult psychiatry in am - start sertraline 25 mg daily CELESTINO/Rhabdomyolysis - CK 623 - Renal US reviewed. - c/w gentle IVF at 80 cc/hr - trend CK Bilateral adrenal hyperplasia - check renin, aldosterone DM2 with neuropathy - ISS, AC and HS - CC diet - a1c 5. - LDL 41. HDL 27. - hold gabapentin until CELESTINO improves - c/w simvastatin 10 mg daily COPD in mild acute exacerbation - wheezing on exam, hypoxic to 3L - per PCP notes, has been having difficulty with inhaler compliance - albuterol - proair - symbicort PAD with severe xerosis and keratosis of bilateral legs - podiatry eval, consult placed with Dr. Muñoz Constipation - significant stool burden on CT imaging, and on ALIVIA - miralax daily - dulcolax suppository - soap suds enema Chronic back pain/Severe spinal stenosis - 04/23 back pain, severely impeding mobility HTN - home meds: amlodipine 10 mg, lisinopril 10 mg daily - hold lisinopril 2/2 CELESTINO - resume amlodipine, monitor BP Hypothyroidism - takes levothyroxine 88 mc daily BPH - c/w flomax DVT ppx: xarelto Dispo: pending clinical improvement. PFS consulted for likely need of placement VS, I&O, 24H, Fishbone Vital Signs/I&O Vital Signs Date Time Temp Pulse Resp B/P (MAP) Pulse Ox O2 Delivery O2 Flow Rate FiO2 12/01/20 14:00 97.9 60 16 132/62 (85) 95 12/01/20 06:00 Nasal Cannula 4.0 I&O- Last 24 Hours up to 6 AM 12/01/20 06:00 Intake Total 1540 ml Output Total 250 ml Balance 1290 ml Laboratory Data 24H LABS Laboratory Tests 2 11/30/20 17:31: Coronavirus (COVID-19)(PCR) NEGATIVE, Influenza Type A (RT-PCR) NEGATIVE, Influenza Type B (RT-PCR) NEGATIVE, Respiratory Syncytial Virus (PCR) NEGATIVE 11/30/20 21:04: Bedside Glucose (Misc Panel) 160H 11/30/20 21:08: Lactic Acid Followup at 4 Hours 1.6 12/01/20 06:45: Immature Granulocyte % (Auto) 0.8, Neutrophils (%) (Auto) 84.0H, Lymphocytes (%) (Auto) 7.7L, Monocytes (%) (Auto) 7.0, Eosinophils (%) (Auto) 0.3, Basophils (%) (Auto) 0.2, Neutrophils # (Auto) 9.9H, Lymphocytes # (Auto) 0.9L, Monocytes # (Auto) 0.8, Eosinophils # (Auto) 0.0, Basophils # (Auto) 0.0, Nucleated Red Blood Cells % (auto) 0.0, Anion Gap 6L, Glomerular Filtration Rate > 60.0, Estimated Mean Plasma Glucose 123H, Hemoglobin A1c 5.9, Calcium Level 8.2L, Magnesium Level 1.9, Total Bilirubin 0.6, Aspartate Amino Transf (AST/SGOT) 30, Alanine Aminotransferase (ALT/SGPT) 16, Alkaline Phosphatase 86, Total Creatine Kinase 296, Total Protein 6.3L, Albumin 2.0L, Albumin/Globulin Ratio 0.5, Triglycerides Level 66, Total Cholesterol 81, LDL Cholesterol 41, Non-HDL Cholesterol (LDL + VLDL) 54, Total HDL Cholesterol 27L, Cholesterol/HDL Ratio 3.000 12/01/20 11:20: Bedside Glucose (Misc Panel) 200H 12/01/20 16:37: Bedside Glucose (Misc Panel) 145H CBC/BMP Laboratory Tests 12/01/20 06:45 Microbiology Microbiology 11/30/20 Urine Culture, Received Pending 11/30/20 Blood Culture - Preliminary, Resulted No growth after 24 hours . All specim... CHAITANYA PEDERSON MD Dec 01, 2020 17:36
[2020-12-01] MEDS ORDERED: RIVAROXABAN 20 MG TAB (XARELTO) PO SCH (18:00)
[2020-12-01] MEDS: SIMVASTATIN 10 MG TAB PO SCH (21:41)
[2020-12-01 22:00] VITALS: BP 136/67
[2020-12-02] MEDS: LEVOTHYROXINE 88MCG TABLET (0.088 MG) PO SCH (05:46)
[2020-12-02 06:00] VITALS: BP 132/67
[2020-12-02 07:26] LABS: BASO % 0.1 % (0.0-1.0); EOS % 0.2 % (0.0-3.0); HEMOGLOBIN 10.9 g/dl (13.5-17.5); LYMPH # 1.1 10^3/uL (1.5-5.0); MEAN CORPUSCULAR HEMOGLOBIN 31.1 pg (27.0-33.0); MEAN CORPUSCULAR HGB CONC 32.1 g/dl (32.0-36.5); MEAN CORPUSCULAR VOLUME 97.1 fl (80.0-96.0); MONO # 0.7 10^3/uL (0.0-0.8); MONO % 5.1 % (2.0-8.0); NEUTROPHILS # 11.2 10^3/uL (1.5-8.5); NEUTROPHILS % 85.8 % (36.0-66.0); PLATELET COUNT, AUTOMATED 299 10^3/uL (150-450); WHITE BLOOD COUNT 13.1 10^3/uL (4.0-10.0)
[2020-12-02] MEDS: HumaLOG INSULIN (NovoLOG) PER UNIT SC SCH ×4 (07:30→21:00)
[2020-12-02 07:51] LABS: ALBUMIN 2.1 GM/DL (3.2-5.2); ALT/SGPT 20 U/L (12-78); BILIRUBIN,TOTAL 0.5 MG/DL (0.2-1.0); BLOOD UREA NITROGEN 24 MG/DL (7-18); CALCIUM LEVEL 8.2 MG/DL (8.8-10.2); CARBON DIOXIDE LEVEL 29 MEQ/L (21-32); CHLORIDE LEVEL 103 MEQ/L (98-107); CREATININE FOR GFR 0.84 MG/DL (0.70-1.30); GLOMERULAR FILTRATION RATE > 60.0 (>42); GLUCOSE, FASTING 123 MG/DL (70-100); POTASSIUM SERUM 4.4 MEQ/L (3.5-5.1); SODIUM LEVEL 137 MEQ/L (136-145); TOTAL PROTEIN 6.7 GM/DL (6.4-8.2)
--- NOTE | 2020-12-02 08:04 | ECGEPIP ---
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
[2020-12-02] MEDS: DOCUSATE SODIUM 100MG CAPSULE PO SCH ×2 (09:00→21:00)
[2020-12-02] MEDS: MIRALAX *UNIT DOSE* 17GM PACKET PO SCH (09:00)
[2020-12-02] MEDS: BISACODYL 10 MG SUPP PR SCH ×2 (09:00→21:00)
[2020-12-02] MEDS ORDERED: CIPROFLOXACIN 400 MG in IV 1 EA IV SCH (10:00)
[2020-12-02] MEDS: TAMSULOSIN 0.4 MG CAP PO SCH (10:27)
[2020-12-02] MEDS: AUGMENTIN 875 MG TAB PO SCH ×2 (10:27→21:54)
[2020-12-02] MEDS: predniSONE 20 MG TAB PO SCH (10:27)
[2020-12-02] MEDS: SERTRALINE HCL 50 MG TAB PO SCH (13:17)
[2020-12-02 14:00] VITALS: BP 134/60
[2020-12-02] MEDS ORDERED: LIDOCAINE 5% (LIDODERM) PATCH TD ONE (17:35)
--- NOTE | 2020-12-02 17:37 | IPNPDOC ---
Date Seen The patient was seen on 12/02/20. Progress Note SUBJECTIVE: seen and examined. no events. doing well. comfortable. not motivated to get better. denies suicidal ideation, states OBJECTIVE PHYSICAL EXAMINATION: General: NAD, comfortable HEENT: PERRLA, EOMI, sclerae clear Neck: supple, normal ROM, no JVD Respiratory: bilateral wheeze on auscultation, no rales, no crackles CVS: RRR, normal S1, S2, no murmurs Abdo: soft, no masses, no hepatosplenomegaly, BS+, no rebound tenderness ALIVIA: large amount of stool in rectal vault, voluntary anal tone present but weakened. Normal sensation, no saddle anesthesia. No blood in rectum. No hemorrhoids seen. Extremities: bilateral lower extremity edema, severe xerosis and keratosis, particularly affecting distal feet. R 2nd toe amputation. Concern for dry gangrene. Back: deep tissue injury noted on sacrum, with a central stage 1 ulcer overlying coccyx. MSK: no joint deformities, normal ROM Neuro: no focal neuro deficits, moving all 4 extremities, CN2-12 intact. Psych: calm, cooperative, AAO x 3 LABORATORY DATA, IMAGING STUDIES, MICROBIOLOGY: Please see below. Bilateral XR feet (12/01/20): Right foot: There is demineralization. There has been amputation of the 2nd digit at the base of the proximal phalange as an interval change. 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 There is advanced great toe/sesamoid osteoarthritis as previously. No acute fracture or dislocation. No lytic, blastic or destructive changes. There is a marked soft tissue edema over the dorsum as an interval change. There are surgical clips in the soft tissues over the dorsum as an interval change. There are calcaneal plantar and Achilles spurs, unchanged. Left foot: No comparison. There is no soft tissue edema. There is mild great toe MTP P osteoarthritis. There are no lytic, blastic or destructive skeletal changes. No fracture or dislocation. There is a small calcaneal plantar spur. IMPRESSION: Right foot 2nd digit amputation. Right foot advanced great toe osteoarthritis as described. Right foot marked soft tissue edema over the dorsum and surgical clips in the soft tissues over the dorsum. Left foot mild great toe osteoarthritis as described. Echocardiogram: echo ordered, pending. DVT prophylaxis ordered?: sukhwinder ASSESSMENT AND PLAN: 80 yo M with a hx of COPD, HTN, DM2, Afib (s/p pacemaker 2015) on xarelto neuropathy, PAD (s/p R fem/pop bypass 2016), skin cancer, brought to [facility] by EMS, after his family became concerned over his overall state of health and significant failure to thrive. Admitted for management of CELESTINO, constipation, and failure to thrive. . PLAN: Bilateral Chronic DVTs, non occlusive - takes xarelto 20 mg daily - concern about medication compliance, although patient assures he takes it daily - possibly absorption issues vs severe immobility - will switch to lovenox SC 1 mg/kg q12h R pleural effusion - possibly related to underlying CHF - obtain 2D echo - patient has refused CT chest to further evaluate pleural effusion Enteroccus UTI - WBC 13. - pansensitive - augmentin PO Bilateral LE edema, R > L - in context of chronic DVTs - switched from xarelto to lovenox - check 2D echo Hypoxia 2/2 COPD exacerbation vs PE vs CHF - not on Home O2 - inhalers. 2D Echo. AC xarelto - maintain O2 > 90% - given bilateral non oclussive DVTs, risk of PE is high - given CELESTINO on possible CKD, precludes CT Angiogram - AC with lovenox Afib s/p pacemaker - AC with xarelto 20 mg daily - paced rhythm, rate controlled - check 2D echo AAA (3.4 cm), infrarenal - refer to vascular surgery for monitoring Depression, new onset - consult psychiatry in am - start sertraline 25 mg daily CELESTINO/Rhabdomyolysis - resolved - CK 623 - Renal US reviewed. - DC IVF - bilateral non obstructing renal stones on US Bilateral adrenal hyperplasia - check renin, aldosterone DM2 with neuropathy - ISS, AC and HS - CC diet - a1c 5. - LDL 41. HDL 27. - resume gabapentin - c/w simvastatin 10 mg daily COPD in mild acute exacerbation - wheezing on exam, hypoxic to 3L - per PCP notes, has been having difficulty with inhaler compliance - albuterol - proair - symbicort PAD with severe xerosis and keratosis of bilateral legs - podiatry eval, consult placed with Dr. Muñoz Constipation - significant stool burden on CT imaging, and on ALIVIA - had large BM with bowel regimen - miralax daily - dulcolax suppository - soap suds enema Chronic back pain/Severe spinal stenosis - 04/23 back pain, severely impeding mobility - patient is refusing to work with physical therapy - unable to obtain MRI due to pacemaker - does not wish for surgical intervention - lidocaine patch, heating pad - norco prn HTN - home meds: amlodipine 10 mg, lisinopril 10 mg daily - hold lisinopril, BP well controlled - resume amlodipine, monitor BP Hypothyroidism - takes levothyroxine 88 mc daily BPH - c/w flomax DVT ppx: xarelto Dispo: pending clinical improvement. PFS consulted for likely need of placement. Patient wants to go home, family very concerned about his wellbeing and are afraid he will not take care of himself. Patient has refused to participate in physical therapy. VS, I&O, 24H, Fishbone Vital Signs/I&O Vital Signs Date Time Temp Pulse Resp B/P (MAP) Pulse Ox O2 Delivery O2 Flow Rate FiO2 12/02/20 14:00 97.6 62 20 134/60 (84) 95 Nasal Cannula 2.0 I&O- Last 24 Hours up to 6 AM 12/02/20 05:59 Intake Total 460 ml Output Total 850 ml Balance -390 ml Laboratory Data 24H LABS Laboratory Tests 2 12/01/20 20:07: Bedside Glucose (Misc Panel) 180H 12/02/20 07:08: Immature Granulocyte % (Auto) 0.8, Neutrophils (%) (Auto) 85.8H, Lymphocytes (%) (Auto) 8.0L, Monocytes (%) (Auto) 5.1, Eosinophils (%) (Auto) 0.2, Basophils (%) (Auto) 0.1, Neutrophils # (Auto) 11.2H, Lymphocytes # (Auto) 1.1L, Monocytes # (Auto) 0.7, Eosinophils # (Auto) 0.0, Basophils # (Auto) 0.0, Nucleated Red Blood Cells % (auto) 0.0, Anion Gap 5L, Glomerular Filtration Rate > 60.0, Calcium Level 8.2L, Magnesium Level 2.0, Total Bilirubin 0.5, Aspartate Amino Transf (AST/SGOT) 32, Alanine Aminotransferase (ALT/SGPT) 20, Alkaline Phosphatase 88, Total Protein 6.7, Albumin 2.1L, Albumin/Globulin Ratio 0.5 12/02/20 11:43: Bedside Glucose (Misc Panel) 137H 12/02/20 16:37: Bedside Glucose (Misc Panel) 182H CBC/BMP Laboratory Tests 12/02/20 07:08 Microbiology Microbiology 12/02/20 Blood Culture, Received Pending 12/02/20 Blood Culture, Received Pending 11/30/20 Urine Culture - Final, Complete Enterococcus Faecalis 11/30/20 Blood Culture - Preliminary, Resulted No Growth after 48 hours. All Specime... CHAITANYA PEDERSON MD Dec 02, 2020 17:37
[2020-12-02] MEDS ORDERED: NORCO, ANEXSIA 5/325MG TABLET (HYDROcodone/ACETAMINOPHEN) PO PRN (17:40)
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
[2020-12-02] MEDS: ENOXAPARIN 100MG/1ML SYRINGE (J1650 PER 10MG) SC SCH (18:00)
--- NOTE | 2020-12-02 19:33 | CR ---
PODIATRY CONSULTATION DATE: 12/02/2020 TIME: Approximately 5:30 p.m. CHIEF COMPLAINT: A 80-year-old male seen for evaluation of thick and painful nails, peripheral artery disease and dry skin. Patient was seen initially with his sister in the room. She introduced me to her brother. She then left for me to examine her brother. Patient appears alert and oriented who states he lives with his dog, who he seemed quite concerned about, even though patient states he has four or five people watching his dog. He enjoys the dog's company. PAST MEDICAL HISTORY: 1. Chronic obstructive pulmonary disease. 2. Hypertension. 3. Diabetes type 2. 4. Atrial fibrillation. 5. Peripheral artery disease with bypass on the right side, femoral popliteal. 6. Skin cancer. 7. He states it is difficult for him to walk. 8. History of glaucoma. 9. History of neuropathy. 10. Pacemaker. 11. Hyperlipidemia. 12. Cataracts. PAST SURGICAL HISTORY: 1. Left hip replacement. 2. Right femoral popliteal bypass. 3. Partial amputation second toe right foot. 4. Insertion of pacemaker. 5. Excision of melanoma left lateral forehead. PHYSICAL EXAMINATION: Reveals an alert, well-oriented 80-year-old male. He has a partial amputation of the second toe of the right foot, which is well-healed. Nails are quite thickened and elongated. Skin is quite xerotic. The only pulse that can be palpated on the patient's extremities is his right dorsalis pedis. The dorsalis pedis on the left side is not palpable. The posterior tibial pulse is not palpable bilateral. Dry, scaly plaques are noted on the dorsal aspects of his feet and lower legs. AT HOME MEDICATIONS: - amlodipine 10 mg by mouth daily - gabapentin 300 mg by mouth twice a day - levothyroxine 88 mcg by mouth daily - lisinopril 10 mg tablets, 30 mg daily - metformin 500 mg by mouth twice a day - Xarelto 20 mg daily - simvastatin 10 mg by mouth at bedtime - tamsulosin 0.4 mg daily ALLERGIES: SULFA. PLAN: The patient's nails were debrided manually with an electric joana times nine. Patient's hyperkeratotic tissue was debrided today bilateral feet. Orders written for ammonium lactate 12% lotion applied twice a day. His questions are answered. Thank you for this consultation.
[2020-12-02] MEDS: LACTIC ACID 12% LOTION 225 GM BTL TOP SCH (21:00)
[2020-12-02] MEDS: **NOTE PATIENT COMMENT** MISC XX SCH (21:00)
[2020-12-02] MEDS: SIMVASTATIN 10 MG TAB PO SCH (21:54)
[2020-12-02 22:00] VITALS: BP 146/66
[2020-12-03 06:00] VITALS: BP 168/72
[2020-12-03] MEDS: ENOXAPARIN 100MG/1ML SYRINGE (J1650 PER 10MG) SC SCH ×2 (06:00→17:17)
[2020-12-03] MEDS: LEVOTHYROXINE 88MCG TABLET (0.088 MG) PO SCH (06:34)
[2020-12-03 06:52] LABS: BASO % 0.1 % (0.0-1.0); HEMATOCRIT 33.6 % (42.0-52.0); HEMOGLOBIN 10.7 g/dl (13.5-17.5); LYMPH % 8.8 % (24.0-44.0); MEAN CORPUSCULAR HEMOGLOBIN 30.7 pg (27.0-33.0); MEAN CORPUSCULAR HGB CONC 31.8 g/dl (32.0-36.5); MEAN CORPUSCULAR VOLUME 96.6 fl (80.0-96.0); MONO # 0.6 10^3/uL (0.0-0.8); MONO % 5.5 % (2.0-8.0); NEUTROPHILS # 9.7 10^3/uL (1.5-8.5); NEUTROPHILS % 84.9 % (36.0-66.0); PLATELET COUNT, AUTOMATED 340 10^3/uL (150-450); RED BLOOD COUNT 3.48 10^6/uL (4.30-6.10); WHITE BLOOD COUNT 11.5 10^3/uL (4.0-10.0)
[2020-12-03 07:13] LABS: ALBUMIN 2.1 GM/DL (3.2-5.2); ALT/SGPT 25 U/L (12-78); BILIRUBIN,TOTAL 0.5 MG/DL (0.2-1.0); BLOOD UREA NITROGEN 28 MG/DL (7-18); CALCIUM LEVEL 8.2 MG/DL (8.8-10.2); CARBON DIOXIDE LEVEL 29 MEQ/L (21-32); CHLORIDE LEVEL 103 MEQ/L (98-107); CREATININE FOR GFR 0.81 MG/DL (0.70-1.30); GLOMERULAR FILTRATION RATE > 60.0 (>42); GLUCOSE, FASTING 139 MG/DL (70-100); POTASSIUM SERUM 4.8 MEQ/L (3.5-5.1); SODIUM LEVEL 139 MEQ/L (136-145); TOTAL PROTEIN 6.7 GM/DL (6.4-8.2)
[2020-12-03] MEDS: AUGMENTIN 875 MG TAB PO SCH ×2 (08:05→20:57)
[2020-12-03] MEDS: predniSONE 20 MG TAB PO SCH (08:05)
[2020-12-03] MEDS: TAMSULOSIN 0.4 MG CAP PO SCH (08:05)
[2020-12-03] MEDS: HumaLOG INSULIN (NovoLOG) PER UNIT SC SCH ×4 (08:05→20:58)
[2020-12-03] MEDS: SERTRALINE HCL 50 MG TAB PO SCH (08:06)
[2020-12-03] MEDS: MIRALAX *UNIT DOSE* 17GM PACKET PO SCH (08:06)
[2020-12-03] MEDS: BISACODYL 10 MG SUPP PR SCH ×2 (08:07→20:59)
[2020-12-03] MEDS: DOCUSATE SODIUM 100MG CAPSULE PO SCH ×2 (08:07→20:58)
[2020-12-03] MEDS: LACTIC ACID 12% LOTION 225 GM BTL TOP SCH ×2 (12:10→20:59)
[2020-12-03 14:00] VITALS: BP 170/76
[2020-12-03] MEDS ORDERED: hydroCHLOROthiazide 12.5 MG CAPSULE PO SCH (20:00)
--- NOTE | 2020-12-03 20:08 | IPNPDOC ---
Date Seen The patient was seen on 12/03/20. Progress Note SUBJECTIVE: seen and examined. no events. doing well. comfortable. OBJECTIVE PHYSICAL EXAMINATION: General: NAD, comfortable HEENT: PERRLA, EOMI, sclerae clear Neck: supple, normal ROM, no JVD Respiratory: bilateral wheeze on auscultation, no rales, no crackles CVS: RRR, normal S1, S2, no murmurs Abdo: soft, no masses, no hepatosplenomegaly, BS+, no rebound tenderness ALIVIA: large amount of stool in rectal vault, voluntary anal tone present but weakened. Normal sensation, no saddle anesthesia. No blood in rectum. No hemorrhoids seen. Extremities: bilateral lower extremity edema, severe xerosis and keratosis, particularly affecting distal feet. R 2nd toe amputation. Concern for dry gangr satidner. Back: deep tissue injury noted on sacrum, with a central stage 1 ulcer overlying coccyx. MSK: no joint deformities, normal ROM Neuro: no focal neuro deficits, moving all 4 extremities, CN2-12 intact. Psych: calm, cooperative, AAO x 3 LABORATORY DATA, IMAGING STUDIES, MICROBIOLOGY: Please see below. Bilateral XR feet (12/01/20): Right foot: There is demineralization. There has been amputation of the 2nd digit at the base of the proximal phalange as an interval change. 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 There is advanced great toe/sesamoid osteoarthritis as previously. No acute fracture or dislocation. No lytic, blastic or destructive changes. There is a marked soft tissue edema over the dorsum as an interval change. There are surgical clips in the soft tissues over the dorsum as an interval change. There are calcaneal plantar and Achilles spurs, unchanged. Left foot: No comparison. There is no soft tissue edema. There is mild great toe MTP P osteoarthritis. There are no lytic, blastic or destructive skeletal changes. No fracture or dislocation. There is a small calcaneal plantar spur. IMPRESSION: Right foot 2nd digit amputation. Right foot advanced great toe osteoarthritis as described. Right foot marked soft tissue edema over the dorsum and surgical clips in the soft tissues over the dorsum. Left foot mild great toe osteoarthritis as described. Echocardiogram: echo ordered, pending. DVT prophylaxis ordered?: xarelto ASSESSMENT AND PLAN: 80 yo M with a hx of COPD, HTN, DM2, Afib (s/p pacemaker 2015) on xarelto neuropathy, PAD (s/p R fem/pop bypass 2016), skin cancer, brought to [facility] by EMS, after his family became concerned over his overall state of health and significant failure to thrive. Admitted for management of CELESTINO, constipation, and failure to thrive. . PLAN: Bilateral Chronic DVTs, non occlusive - takes xarelto 20 mg daily - concern about medication compliance, although patient assures he takes it daily - possibly absorption issues vs severe immobility - switch to lovenox SC 1 mg/kg q12h R pleural effusion - possibly related to underlying CHF - obtain 2D echo - patient has refused CT chest to further evaluate pleural effusion Enteroccus UTI - WBC 13. - pansensitive - augmentin PO Bilateral LE edema, R > L - in context of chronic DVTs - switched from xarelto to lovenox - check 2D echo Dysthymia - started patient on sertraline 50 mg daily - psych consult placed. - d/w Dr. Bridges, patient has low mood, agrees with sertraline - patient has capacity to make his own decision. Hypoxia 2/2 COPD exacerbation vs PE vs CHF - not on Home O2 - inhalers. 2D Echo. AC xarelto, switched to lovenox as was found to have non occlusive DVTs b/l - maintain O2 > 90% - given bilateral non oclussive DVTs, risk of PE is high - given CELESTINO on possible CKD, precludes CT Angiogram - AC with lovenox Afib s/p pacemaker - AC with xarelto 20 mg daily - paced rhythm, rate controlled - check 2D echo AAA (3.4 cm), infrarenal - refer to vascular surgery for monitoring Depression, new onset - consult psychiatry in am - start sertraline 25 mg daily CELESTINO/Rhabdomyolysis - resolved - CK 623 - Renal US reviewed. - DC IVF - bilateral non obstructing renal stones on US Bilateral adrenal hyperplasia - check renin, aldosterone DM2 with neuropathy - ISS, AC and HS - CC diet - a1c 5. - LDL 41. HDL 27. - resume gabapentin - c/w simvastatin 10 mg daily COPD in mild acute exacerbation - wheezing on exam, hypoxic to 3L - per PCP notes, has been having difficulty with inhaler compliance - prednisone 40 mg daily x 5 days - albuterol - proair - symbicort PAD with severe xerosis and keratosis of bilateral legs - podiatry eval, consult placed with Dr. Muñoz Constipation - significant stool burden on CT imaging, and on ALIVIA - had large BM with bowel regimen - miralax daily - dulcolax suppository - soap suds enema Chronic back pain/Severe spinal stenosis - 04/23 back pain, severely impeding mobility - patient is refusing to work with physical therapy - unable to obtain MRI due to pacemaker - does not wish for surgical intervention - lidocaine patch, heating pad - norco prn HTN - home meds: amlodipine 10 mg, lisinopril 10 mg daily - BP well controlled - resume amlodipine, monitor BP - resumed lisinopril at a higher dose of 20 mg daily Hypothyroidism - takes levothyroxine 88 mc daily BPH - c/w flomax DVT ppx: xarelto Dispo: pending clinical improvement. PFS consulted for likely need of placement. Patient has shown more motivation today in working with PT and OT. He is motivated to return home to his dog which is giving him a sense of purpose. He worked with PT, required contact guard assist. His sister brought him new shoes, and Dr. Muñoz debrided his feet. Further PT and OT recommendations to follow. I hope he can improve to be well enough to return home with services, but this remains to be seen. He adamantly denies transfer to rehab. VS, I&O, 24H, Fishbone Vital Signs/I&O Vital Signs Date Time Temp Pulse Resp B/P (MAP) Pulse Ox O2 Delivery O2 Flow Rate FiO2 12/03/20 14:00 97.8 60 16 170/76 (107) 94 Room Air 12/02/20 22:00 I&O- Last 24 Hours up to 6 AM 12/03/20 06:00 Intake Total 330 ml Output Total 425 ml Balance -95 ml Laboratory Data 24H LABS Laboratory Tests 2 12/02/20 21:29: Bedside Glucose (Misc Panel) 179H 12/03/20 05:27: Immature Granulocyte % (Auto) 0.7, Neutrophils (%) (Auto) 84.9H, Lymphocytes (%) (Auto) 8.8L, Monocytes (%) (Auto) 5.5, Eosinophils (%) (Auto) 0.0, Basophils (%) (Auto) 0.1, Neutrophils # (Auto) 9.7H, Lymphocytes # (Auto) 1.0L, Monocytes # (Auto) 0.6, Eosinophils # (Auto) 0.0, Basophils # (Auto) 0.0, Nucleated Red Blood Cells % (auto) 0.0, Anion Gap 7L, Glomerular Filtration Rate > 60.0, Calcium Level 8.2L, Magnesium Level 2.0, Total Bilirubin 0.5, Aspartate Amino Transf (AST/SGOT) 33, Alanine Aminotransferase (ALT/SGPT) 25, Alkaline Phosphatase 97, Total Protein 6.7, Albumin 2.1L, Albumin/Globulin Ratio 0.5 12/03/20 11:48: Bedside Glucose (Misc Panel) 146H 12/03/20 16:46: Bedside Glucose (Misc Panel) 216H CBC/BMP Laboratory Tests 12/03/20 05:27 Microbiology Microbiology 12/02/20 Blood Culture - Preliminary, Resulted No growth after 24 hours . All specim... 12/02/20 Blood Culture - Preliminary, Resulted No growth after 24 hours . All specim... 11/30/20 Urine Culture - Final, Complete Enterococcus Faecalis 11/30/20 Blood Culture - Preliminary, Resulted No Growth after 72 hours. All specime... CHAITANYA PEDERSON MD Dec 03, 2020 20:08
[2020-12-03] MEDS: SIMVASTATIN 10 MG TAB PO SCH (20:58)
[2020-12-03] MEDS: **NOTE PATIENT COMMENT** MISC XX SCH (21:00)
[2020-12-03] MEDS: LATANOPROST 0.005% OPHTH SOLN 2.5 ML OD SCH (21:03)
[2020-12-03] MEDS: TIMOLOL MALEATE 0.25% OPHTH SOLN 5 ML OD SCH (21:03)
[2020-12-03 22:00] VITALS: BP 164/76
[2020-12-04 06:00] VITALS: BP 152/64
[2020-12-04] MEDS: ENOXAPARIN 100MG/1ML SYRINGE (J1650 PER 10MG) SC SCH (06:03)
[2020-12-04] MEDS: LEVOTHYROXINE 88MCG TABLET (0.088 MG) PO SCH (06:03)
[2020-12-04 06:14] LABS: BASO % 0.2 % (0.0-1.0); EOS % 0.1 % (0.0-3.0); HEMOGLOBIN 11.3 g/dl (13.5-17.5); LYMPH % 10.9 % (24.0-44.0); MEAN CORPUSCULAR HGB CONC 32.3 g/dl (32.0-36.5); MEAN CORPUSCULAR VOLUME 95.9 fl (80.0-96.0); MONO # 0.6 10^3/uL (0.0-0.8); NEUTROPHILS # 7.4 10^3/uL (1.5-8.5); NEUTROPHILS % 80.5 % (36.0-66.0); PLATELET COUNT, AUTOMATED 344 10^3/uL (150-450); RED BLOOD COUNT 3.65 10^6/uL (4.30-6.10); WHITE BLOOD COUNT 9.2 10^3/uL (4.0-10.0)
[2020-12-04 06:32] LABS: ALT/SGPT 28 U/L (12-78); BILIRUBIN,TOTAL 0.5 MG/DL (0.2-1.0); BLOOD UREA NITROGEN 27 MG/DL (7-18); CALCIUM LEVEL 8.3 MG/DL (8.8-10.2); CARBON DIOXIDE LEVEL 30 MEQ/L (21-32); CHLORIDE LEVEL 104 MEQ/L (98-107); CREATININE FOR GFR 0.76 MG/DL (0.70-1.30); GLOMERULAR FILTRATION RATE > 60.0 (>42); GLUCOSE, FASTING 129 MG/DL (70-100); MAGNESIUM LEVEL 2.1 MG/DL (1.8-2.4); POTASSIUM SERUM 4.3 MEQ/L (3.5-5.1); SODIUM LEVEL 139 MEQ/L (136-145); TOTAL PROTEIN 6.6 GM/DL (6.4-8.2)
--- NOTE | 2020-12-04 08:34 | REP ---
INDICATION: hypoxia. COMPARISON: The visualized lower lung de la fuente on abdomen/pelvis CT dated 11/30/2020. TECHNIQUE: Portable AP views of the chest with the patient upright, two views. FINDINGS: There is a moderate to large right pleural effusion similar to the comparison CT. The left lung is clear and unchanged. Cardiac size is normal. There is a dual chamber pacemaker, unchanged. IMPRESSION: Moderate to large right pleural effusion. <Electronically signed by Kirby Abel > 12/04/20 2294
[2020-12-04 08:45] LABS: NT-PRO BNP 6157 PG/ML (<450)
[2020-12-04] MEDS: AUGMENTIN 875 MG TAB PO SCH ×2 (08:53→21:17)
[2020-12-04] MEDS: predniSONE 20 MG TAB PO SCH (08:53)
[2020-12-04] MEDS: TAMSULOSIN 0.4 MG CAP PO SCH (08:53)
[2020-12-04] MEDS: SERTRALINE HCL 50 MG TAB PO SCH (08:53)
[2020-12-04] MEDS: HumaLOG INSULIN (NovoLOG) PER UNIT SC SCH ×4 (08:53→21:00)
[2020-12-04] MEDS: MIRALAX *UNIT DOSE* 17GM PACKET PO SCH (08:54)
[2020-12-04] MEDS: DOCUSATE SODIUM 100MG CAPSULE PO SCH ×2 (08:55→21:00)
[2020-12-04] MEDS: BISACODYL 10 MG SUPP PR SCH ×2 (09:00→21:00)
[2020-12-04] MEDS: LACTIC ACID 12% LOTION 225 GM BTL TOP SCH ×2 (12:10→21:17)
[2020-12-04] MEDS: TIMOLOL MALEATE 0.25% OPHTH SOLN 5 ML OD SCH ×2 (12:10→21:18)
[2020-12-04 14:00] VITALS: BP 165/77
--- NOTE | 2020-12-04 15:57 | IPNPDOC ---
Text Note Date of Service The patient was seen on 12/04/20. NOTE Subjective: Patient was seen and examined this morning at bedside. Patient tells me he is doing well he's trying to work hard with physical therapy. He is eager to go home to see his dog. No acute overnight events were reported to me. I questioned the patient further regarding his compliance with Xarelto and he tells me he frequently doesn't take it sometimes up to 3 or 4 times per week that he misses his dose. Objective: General: NAD, comfortable HEENT: PERRLA, EOMI, sclerae clear Neck: supple, normal ROM, no JVD Respiratory: bilateral wheeze on auscultation, no rales, no crackles no respiratory distress breathing on room air at 95% saturation CVS: Regular rate and rhythm and no appreciable murmurs Abdo: soft, no masses, no hepatosplenomegaly, BS+, no rebound tenderness Extremities: bilateral lower extremity edema, severe xerosis and keratosis, particularly affecting distal feet. 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 MSK: no joint deformities, normal ROM Neuro: no focal neuro deficits Psych: calm, cooperative, AAO x 3 Assessment/plan: 80 yo M with a hx of COPD, HTN, DM2, Afib (s/p pacemaker 2015) on xarelto neuropathy, PAD (s/p R fem/pop bypass 2015), skin cancer, brought to [facility] by EMS, after his family became concerned over his overall state of health and significant failure to thrive. Admitted for management of CELESTINO, constipation, and failure to thrive. Patient adamant to return to home refusing rehabilitation he was switched to he'll see status on 12/04/2020 and will continue to work with physical therapy in the inpatient setting in the hopes of being able to reach a point able to go home with services. # Bilateral Chronic DVTs, non occlusive. takes xarelto 20 mg daily but endorses noncompliance with some doses. I will keep him on the Xarelto given that he admits to noncompliance sometimes I think switching him to Lovenox will probably lead to even more noncompliance as he will have to inject himself twice daily. The DVTs are chronic and I do not consider this to be treatment failure. # COPD in mild acute exacerbation: Now on room air saturating at 95% at rest. Will need ambulatory saturation test when able to do so. Patient refusing to use oxygen at time of discharge to home. Inhaler scheduled and as needed. prednisone 40 mg daily x 5 days # Respiratory failure with Hypoxia: This is likely secondary to his COPD exacerbation. He appears to be improving currently on room air at rest. # R pleural effusion: possibly related to underlying CHF. patient has refused CT chest to further evaluate pleural effusion. Gentle dieureis with lasix for ~1 month and then follow up with PCP, could do repeat CXR. # Enteroccus UTI: leukocytosis resolved. pansensitive. augmentin PO 7 days # Bilateral LE edema, R > L: in context of chronic DVTs. Patient says they're unchanged from prior. # Afib s/p pacemaker: AC with xarelto 20 mg daily. paced rhythm, rate controlled # AAA (3.4 cm), infrarenal: Follow up with PCP for monitoring. # Depression: started sertraline. Psychiatry Dr weeks consulted. # CELESTINO/Rhabdomyolysis. resolved with CIFs. bilateral non obstructing renal stones on US # Bilateral adrenal hyperplasia: Fu check renin, aldosterone # DM2 with neuropathy. ISS, AC and HS. CC diet. a1c 5. LDL 41. HDL 27. resume gabapentin c/w simvastatin 10 mg daily # PAD with severe xerosis and keratosis of bilateral legs. podiatry eval, consult placed with Dr. Muñoz # Constipation: significant stool burden on CT imaging, and on ALIVIA. had large BM with bowel regiment. miralax daily. dulcolax suppository. soap suds enema # Chronic back pain/Severe spinal stenosis. 8/10 back pain, severely impeding mobility. unable to obtain MRI due to pacemaker. does not wish for surgical intervention. lidocaine patch, heating pad. norco prn # HTN: on amlodipine, lisinopril. # Hypothyroidism: takes levothyroxine 88 mc daily # BPH c/w flomax # DVT ppx: xarelto Dispo: Patient refusing placement wants to go home after physical therapy in the hospital. Agreeable to continue to work with physical therapy until he's able to safely go home possibly with services. His sister brought him new shoes, and Dr. Muñoz debrided his feet. I hope he can improve to be well enough to return home with services, but this remains to be seen. He adamantly denies transfer to rehab. A [facility] Hospitalist Yeny BRASWELL, I+O Yeny BRASWELL I+O Laboratory Tests 12/04/20 05:15 Vital Signs Date Time Temp Pulse Resp B/P (MAP) Pulse Ox O2 Delivery O2 Flow Rate FiO2 12/04/20 14:00 98.3 64 20 165/77 (106) 95 Room Air 12/02/20 22:00 I&O- Last 24 Hours up to 6 AM 12/04/20 06:00 Intake Total 360 ml Output Total 1425 ml Balance -1065 ml LANDON MOHAN MD Dec 04, 2020 15:57
[2020-12-04] MEDS: IPRATROPIUM 0.5MG/ALBUTEROL 2.5MG INH SOL UD 3ML (DUONEB) NEB SCH ×2 (16:00→23:31)
[2020-12-04] MEDS: FUROSEMIDE 40 MG TAB PO SCH (17:19)
[2020-12-04] MEDS: RIVAROXABAN 20 MG TAB (XARELTO) PO SCH (17:19)
[2020-12-04] MEDS: **NOTE PATIENT COMMENT** MISC XX SCH (21:00)
[2020-12-04] MEDS: SIMVASTATIN 10 MG TAB PO SCH (21:17)
[2020-12-04] MEDS: LATANOPROST 0.005% OPHTH SOLN 2.5 ML OD SCH (21:18)
[2020-12-05] MEDS: LEVOTHYROXINE 88MCG TABLET (0.088 MG) PO SCH (05:53)
[2020-12-05 06:06] LABS: BASO % 0.1 % (0.0-1.0); EOS % 0.1 % (0.0-3.0); HEMATOCRIT 36.9 % (42.0-52.0); HEMOGLOBIN 11.7 g/dl (13.5-17.5); LYMPH # 1.3 10^3/uL (1.5-5.0); LYMPH % 14.5 % (24.0-44.0); MEAN CORPUSCULAR HEMOGLOBIN 30.4 pg (27.0-33.0); MEAN CORPUSCULAR HGB CONC 31.7 g/dl (32.0-36.5); MEAN CORPUSCULAR VOLUME 95.8 fl (80.0-96.0); MONO # 0.7 10^3/uL (0.0-0.8); MONO % 7.3 % (2.0-8.0); NEUTROPHILS # 7.1 10^3/uL (1.5-8.5); NEUTROPHILS % 76.9 % (36.0-66.0); PLATELET COUNT, AUTOMATED 350 10^3/uL (150-450); RED BLOOD COUNT 3.85 10^6/uL (4.30-6.10); WHITE BLOOD COUNT 9.2 10^3/uL (4.0-10.0)
[2020-12-05 06:28] LABS: ALBUMIN 2.1 GM/DL (3.2-5.2); ALT/SGPT 40 U/L (12-78); BILIRUBIN,TOTAL 0.4 MG/DL (0.2-1.0); BLOOD UREA NITROGEN 27 MG/DL (7-18); CALCIUM LEVEL 8.4 MG/DL (8.8-10.2); CARBON DIOXIDE LEVEL 30 MEQ/L (21-32); CHLORIDE LEVEL 104 MEQ/L (98-107); CREATININE FOR GFR 0.82 MG/DL (0.70-1.30); GLOMERULAR FILTRATION RATE > 60.0 (>42); GLUCOSE, FASTING 119 MG/DL (70-100); POTASSIUM SERUM 4.4 MEQ/L (3.5-5.1); SODIUM LEVEL 139 MEQ/L (136-145); TOTAL PROTEIN 6.5 GM/DL (6.4-8.2)
[2020-12-05] MEDS: IPRATROPIUM 0.5MG/ALBUTEROL 2.5MG INH SOL UD 3ML (DUONEB) NEB SCH ×3 (07:08→23:04)
[2020-12-05] MEDS: HumaLOG INSULIN (NovoLOG) PER UNIT SC SCH ×4 (08:47→19:41)
[2020-12-05] MEDS: MIRALAX *UNIT DOSE* 17GM PACKET PO SCH (08:48)
[2020-12-05] MEDS: DOCUSATE SODIUM 100MG CAPSULE PO SCH ×2 (08:48→19:41)
[2020-12-05] MEDS: FUROSEMIDE 40 MG TAB PO SCH (08:48)
[2020-12-05] MEDS: AUGMENTIN 875 MG TAB PO SCH ×2 (08:48→19:40)
[2020-12-05] MEDS: TAMSULOSIN 0.4 MG CAP PO SCH (08:48)
[2020-12-05] MEDS: BISACODYL 10 MG SUPP PR SCH ×2 (08:48→19:41)
[2020-12-05] MEDS: SERTRALINE HCL 50 MG TAB PO SCH (08:48)
[2020-12-05] MEDS: predniSONE 20 MG TAB PO SCH (08:48)
[2020-12-05] MEDS: TIMOLOL MALEATE 0.25% OPHTH SOLN 5 ML OD SCH ×2 (08:51→19:41)
[2020-12-05] MEDS: LACTIC ACID 12% LOTION 225 GM BTL TOP SCH ×2 (08:51→19:41)
[2020-12-05] MEDS: RIVAROXABAN 20 MG TAB (XARELTO) PO SCH (18:03)
[2020-12-05] MEDS: LATANOPROST 0.005% OPHTH SOLN 2.5 ML OD SCH (19:40)
[2020-12-05] MEDS: SIMVASTATIN 10 MG TAB PO SCH (19:40)
[2020-12-05] MEDS: **NOTE PATIENT COMMENT** MISC XX SCH (19:42)
[2020-12-06] MEDS: LEVOTHYROXINE 88MCG TABLET (0.088 MG) PO SCH (05:32)
[2020-12-06 06:00] VITALS: BP 151/89
[2020-12-06 06:35] LABS: EOS % 0.4 % (0.0-3.0); HEMATOCRIT 37.8 % (42.0-52.0); HEMOGLOBIN 11.9 g/dl (13.5-17.5); LYMPH # 1.6 10^3/uL (1.5-5.0); LYMPH % 15.3 % (24.0-44.0); MEAN CORPUSCULAR HEMOGLOBIN 30.1 pg (27.0-33.0); MEAN CORPUSCULAR HGB CONC 31.5 g/dl (32.0-36.5); MEAN CORPUSCULAR VOLUME 95.7 fl (80.0-96.0); MONO # 0.7 10^3/uL (0.0-0.8); MONO % 6.7 % (2.0-8.0); NEUTROPHILS # 7.8 10^3/uL (1.5-8.5); NEUTROPHILS % 76.4 % (36.0-66.0); PLATELET COUNT, AUTOMATED 372 10^3/uL (150-450); RED BLOOD COUNT 3.95 10^6/uL (4.30-6.10); WHITE BLOOD COUNT 10.2 10^3/uL (4.0-10.0)
[2020-12-06 06:49] LABS: ALBUMIN 2.3 GM/DL (3.2-5.2); ALT/SGPT 59 U/L (12-78); BILIRUBIN,TOTAL 0.5 MG/DL (0.2-1.0); BLOOD UREA NITROGEN 26 MG/DL (7-18); CALCIUM LEVEL 8.3 MG/DL (8.8-10.2); CARBON DIOXIDE LEVEL 32 MEQ/L (21-32); CHLORIDE LEVEL 102 MEQ/L (98-107); GLOMERULAR FILTRATION RATE > 60.0 (>42); GLUCOSE, FASTING 103 MG/DL (70-100); POTASSIUM SERUM 4.2 MEQ/L (3.5-5.1); SODIUM LEVEL 140 MEQ/L (136-145)
[2020-12-06] MEDS: IPRATROPIUM 0.5MG/ALBUTEROL 2.5MG INH SOL UD 3ML (DUONEB) NEB SCH ×3 (07:28→23:56)
[2020-12-06] MEDS: HumaLOG INSULIN (NovoLOG) PER UNIT SC SCH ×4 (08:55→20:56)
[2020-12-06] MEDS: MIRALAX *UNIT DOSE* 17GM PACKET PO SCH (09:00)
[2020-12-06] MEDS: BISACODYL 10 MG SUPP PR SCH ×2 (09:00→20:25)
[2020-12-06] MEDS: DOCUSATE SODIUM 100MG CAPSULE PO SCH ×2 (09:00→20:25)
[2020-12-06] MEDS: TAMSULOSIN 0.4 MG CAP PO SCH (09:47)
[2020-12-06] MEDS: FUROSEMIDE 40 MG TAB PO SCH (09:47)
[2020-12-06] MEDS: predniSONE 20 MG TAB PO SCH (09:47)
[2020-12-06] MEDS: SERTRALINE HCL 50 MG TAB PO SCH (09:47)
[2020-12-06] MEDS: AUGMENTIN 875 MG TAB PO SCH ×2 (09:48→20:24)
[2020-12-06] MEDS: TIMOLOL MALEATE 0.25% OPHTH SOLN 5 ML OD SCH ×2 (09:48→20:25)
[2020-12-06] MEDS: LACTIC ACID 12% LOTION 225 GM BTL TOP SCH ×2 (09:48→20:26)
[2020-12-06] MEDS: RIVAROXABAN 20 MG TAB (XARELTO) PO SCH (18:36)
[2020-12-06] MEDS: LATANOPROST 0.005% OPHTH SOLN 2.5 ML OD SCH (20:25)
[2020-12-06] MEDS: SIMVASTATIN 10 MG TAB PO SCH (20:25)
[2020-12-06] MEDS: **NOTE PATIENT COMMENT** MISC XX SCH (20:26)
[2020-12-07] MEDS: LEVOTHYROXINE 88MCG TABLET (0.088 MG) PO SCH (05:42)
[2020-12-07 06:00] VITALS: BP 150/78
[2020-12-07 06:13] LABS: BASO % 0.1 % (0.0-1.0); EOS % 0.2 % (0.0-3.0); HEMATOCRIT 37.6 % (42.0-52.0); HEMOGLOBIN 12.2 g/dl (13.5-17.5); LYMPH # 1.5 10^3/uL (1.5-5.0); LYMPH % 13.8 % (24.0-44.0); MEAN CORPUSCULAR HEMOGLOBIN 30.7 pg (27.0-33.0); MEAN CORPUSCULAR HGB CONC 32.4 g/dl (32.0-36.5); MEAN CORPUSCULAR VOLUME 94.5 fl (80.0-96.0); MONO # 0.7 10^3/uL (0.0-0.8); MONO % 6.3 % (2.0-8.0); NEUTROPHILS # 8.2 10^3/uL (1.5-8.5); NEUTROPHILS % 78.5 % (36.0-66.0); PLATELET COUNT, AUTOMATED 353 10^3/uL (150-450); RED BLOOD COUNT 3.98 10^6/uL (4.30-6.10); WHITE BLOOD COUNT 10.5 10^3/uL (4.0-10.0)
[2020-12-07 06:35] LABS: ALBUMIN 2.3 GM/DL (3.2-5.2); ALT/SGPT 74 U/L (12-78); BILIRUBIN,TOTAL 0.4 MG/DL (0.2-1.0); BLOOD UREA NITROGEN 28 MG/DL (7-18); CALCIUM LEVEL 8.5 MG/DL (8.8-10.2); CARBON DIOXIDE LEVEL 32 MEQ/L (21-32); CHLORIDE LEVEL 102 MEQ/L (98-107); CREATININE FOR GFR 0.86 MG/DL (0.70-1.30); GLOMERULAR FILTRATION RATE > 60.0 (>42); GLUCOSE, FASTING 117 MG/DL (70-100); MAGNESIUM LEVEL 2.1 MG/DL (1.8-2.4); POTASSIUM SERUM 4.1 MEQ/L (3.5-5.1); SODIUM LEVEL 139 MEQ/L (136-145)
[2020-12-07] MEDS: IPRATROPIUM 0.5MG/ALBUTEROL 2.5MG INH SOL UD 3ML (DUONEB) NEB SCH ×2 (07:15→15:00)
[2020-12-07] MEDS: DOCUSATE SODIUM 100MG CAPSULE PO SCH ×2 (08:26→20:55)
[2020-12-07] MEDS: TAMSULOSIN 0.4 MG CAP PO SCH (08:26)
[2020-12-07] MEDS: SERTRALINE HCL 50 MG TAB PO SCH (08:26)
[2020-12-07] MEDS: FUROSEMIDE 40 MG TAB PO SCH (08:26)
[2020-12-07] MEDS: HumaLOG INSULIN (NovoLOG) PER UNIT SC SCH ×4 (08:26→20:39)
[2020-12-07] MEDS: AUGMENTIN 875 MG TAB PO SCH ×2 (08:27→20:56)
[2020-12-07] MEDS: TIMOLOL MALEATE 0.25% OPHTH SOLN 5 ML OD SCH ×2 (08:27→20:56)
[2020-12-07] MEDS: LACTIC ACID 12% LOTION 225 GM BTL TOP SCH ×2 (08:28→20:56)
[2020-12-07] MEDS: MIRALAX *UNIT DOSE* 17GM PACKET PO SCH (08:31)
[2020-12-07] MEDS: BISACODYL 10 MG SUPP PR SCH ×2 (08:32→20:41)
[2020-12-07] MEDS: RIVAROXABAN 20 MG TAB (XARELTO) PO SCH (18:09)
[2020-12-07] MEDS: **NOTE PATIENT COMMENT** MISC XX SCH (20:56)
[2020-12-07] MEDS: SIMVASTATIN 10 MG TAB PO SCH (20:56)
[2020-12-07] MEDS: LATANOPROST 0.005% OPHTH SOLN 2.5 ML OD SCH (20:56)
[2020-12-08] MEDS: LEVOTHYROXINE 88MCG TABLET (0.088 MG) PO SCH (05:49)
[2020-12-08 06:00] VITALS: BP 127/58
[2020-12-08] MEDS: HumaLOG INSULIN (NovoLOG) PER UNIT SC SCH ×4 (07:30→21:00)
[2020-12-08] MEDS: IPRATROPIUM 0.5MG/ALBUTEROL 2.5MG INH SOL UD 3ML (DUONEB) NEB SCH ×3 (08:00→16:00)
[2020-12-08] MEDS: SERTRALINE HCL 50 MG TAB PO SCH (08:47)
[2020-12-08] MEDS: TAMSULOSIN 0.4 MG CAP PO SCH (08:48)
[2020-12-08] MEDS: AUGMENTIN 875 MG TAB PO SCH ×2 (08:48→21:09)
[2020-12-08] MEDS: FUROSEMIDE 40 MG TAB PO SCH (08:48)
[2020-12-08] MEDS: TIMOLOL MALEATE 0.25% OPHTH SOLN 5 ML OD SCH ×2 (08:49→21:10)
[2020-12-08] MEDS: DOCUSATE SODIUM 100MG CAPSULE PO SCH ×4 (08:49→21:00)
[2020-12-08] MEDS: MIRALAX *UNIT DOSE* 17GM PACKET PO SCH (08:57)
[2020-12-08] MEDS: LACTIC ACID 12% LOTION 225 GM BTL TOP SCH ×2 (09:00→21:00)
[2020-12-08] MEDS: BISACODYL 10 MG SUPP PR SCH ×2 (09:00→21:00)
[2020-12-08] MEDS: RIVAROXABAN 20 MG TAB (XARELTO) PO SCH (17:01)
[2020-12-08] MEDS: **NOTE PATIENT COMMENT** MISC XX SCH (21:00)
[2020-12-08] MEDS: SIMVASTATIN 10 MG TAB PO SCH (21:09)
[2020-12-08] MEDS: LATANOPROST 0.005% OPHTH SOLN 2.5 ML OD SCH (21:10)
[2020-12-09] MEDS: LEVOTHYROXINE 88MCG TABLET (0.088 MG) PO SCH (05:34)
[2020-12-09 06:00] VITALS: BP 147/76
[2020-12-09] MEDS: IPRATROPIUM 0.5MG/ALBUTEROL 2.5MG INH SOL UD 3ML (DUONEB) NEB SCH ×4 (07:51→23:39)
[2020-12-09] MEDS: HumaLOG INSULIN (NovoLOG) PER UNIT SC SCH ×4 (08:15→21:00)
[2020-12-09] MEDS: AUGMENTIN 875 MG TAB PO SCH (08:16)
[2020-12-09] MEDS: MIRALAX *UNIT DOSE* 17GM PACKET PO SCH (08:16)
[2020-12-09] MEDS: SERTRALINE HCL 50 MG TAB PO SCH (08:16)
[2020-12-09] MEDS: TAMSULOSIN 0.4 MG CAP PO SCH (08:17)
[2020-12-09] MEDS: FUROSEMIDE 40 MG TAB PO SCH (08:17)
[2020-12-09] MEDS: DOCUSATE SODIUM 100MG CAPSULE PO SCH ×2 (08:18→20:37)
[2020-12-09] MEDS: TIMOLOL MALEATE 0.25% OPHTH SOLN 5 ML OD SCH ×2 (08:18→21:31)
[2020-12-09] MEDS: LACTIC ACID 12% LOTION 225 GM BTL TOP SCH ×2 (08:18→21:31)
[2020-12-09] MEDS: BISACODYL 10 MG SUPP PR SCH ×2 (08:18→20:37)
[2020-12-09] MEDS: RIVAROXABAN 20 MG TAB (XARELTO) PO SCH (17:48)
[2020-12-09] MEDS: **NOTE PATIENT COMMENT** MISC XX SCH (21:00)
[2020-12-09] MEDS: LATANOPROST 0.005% OPHTH SOLN 2.5 ML OD SCH (21:30)
[2020-12-09] MEDS: SIMVASTATIN 10 MG TAB PO SCH (21:30)
[2020-12-10 06:00] VITALS: BP 125/75
[2020-12-10] MEDS: LEVOTHYROXINE 88MCG TABLET (0.088 MG) PO SCH (06:14)
[2020-12-10] MEDS: IPRATROPIUM 0.5MG/ALBUTEROL 2.5MG INH SOL UD 3ML (DUONEB) NEB SCH ×3 (07:09→23:16)
[2020-12-10] MEDS: HumaLOG INSULIN (NovoLOG) PER UNIT SC SCH ×4 (08:39→21:00)
[2020-12-10] MEDS: DOCUSATE SODIUM 100MG CAPSULE PO SCH ×2 (09:00→21:00)
[2020-12-10] MEDS: BISACODYL 10 MG SUPP PR SCH ×2 (09:00→21:00)
[2020-12-10] MEDS: MIRALAX *UNIT DOSE* 17GM PACKET PO SCH (09:00)
[2020-12-10] MEDS: SERTRALINE HCL 50 MG TAB PO SCH (09:29)
[2020-12-10] MEDS: TAMSULOSIN 0.4 MG CAP PO SCH (09:29)
[2020-12-10] MEDS: FUROSEMIDE 40 MG TAB PO SCH (09:30)
[2020-12-10] MEDS: LACTIC ACID 12% LOTION 225 GM BTL TOP SCH ×2 (09:31→21:17)
[2020-12-10] MEDS: TIMOLOL MALEATE 0.25% OPHTH SOLN 5 ML OD SCH ×2 (09:31→21:16)
[2020-12-10 12:07] LABS: ALDOSTERONE < 1.0 ng/dL (0.0-30.0); RENIN LEVEL 5.295 ng/mL/hr (0.167-5.380)
[2020-12-10 12:10] LABS: HEMATOCRIT 41.5 % (42.0-52.0); HEMOGLOBIN 13.1 g/dl (13.5-17.5); MEAN CORPUSCULAR HEMOGLOBIN 30.4 pg (27.0-33.0); MEAN CORPUSCULAR HGB CONC 31.6 g/dl (32.0-36.5); MEAN CORPUSCULAR VOLUME 96.3 fl (80.0-96.0); PLATELET COUNT, AUTOMATED 323 10^3/uL (150-450); RED BLOOD COUNT 4.31 10^6/uL (4.30-6.10); WHITE BLOOD COUNT 8.4 10^3/uL (4.0-10.0)
[2020-12-10 12:41] LABS: BLOOD UREA NITROGEN 24 MG/DL (7-18); CALCIUM LEVEL 8.3 MG/DL (8.8-10.2); CARBON DIOXIDE LEVEL 31 MEQ/L (21-32); CHLORIDE LEVEL 103 MEQ/L (98-107); CREATININE FOR GFR 0.95 MG/DL (0.70-1.30); GLOMERULAR FILTRATION RATE > 60.0 (>42); GLUCOSE, FASTING 178 MG/DL (70-100); POTASSIUM SERUM 4.2 MEQ/L (3.5-5.1); SODIUM LEVEL 138 MEQ/L (136-145)
--- NOTE | 2020-12-10 13:29 | IPNPDOC ---
Text Note Date of Service The patient was seen on 12/10/20. NOTE Subjective: Patient was seen and evaluated today. He was resting in bed. I spoke to him. He is an excellent historian. He reports that he does not have any pain in this time, but he does continue to have significant fatigue and weakness. He has been working with physical therapy as best he can. It appears that he is certainly in need of a wheelchair. He has limited ability to safely ambulate and requires 24- hour care for transitions within the home. Patient's mobility limitation significantly impair his ability to participate in toiletry, feeding, and bathing, and his mobility cannot be resolved with a rolling walker. When the patient goes home he will be returning home wheelchair level. In addition to this he was certainly need a bedside commode as well since he will essentially be confined to a single room at home. Prescriptions for both of these were written today. Objective: General: NAD, comfortable HEENT: PERRLA, EOMI, sclerae clear Neck: supple, normal ROM, no JVD Respiratory: Clear to auscultation bilaterally with no wheezes, rales, rhonchi. He is saturating well on room air. CVS: Regular rate and rhythm and no appreciable murmurs Abdo: soft, no masses, no hepatosplenomegaly, BS+, no rebound tenderness Extremities: bilateral lower extremity edema, severe xerosis and keratosis, particularly affecting distal feet. 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 MSK: no joint deformities, normal ROM Neuro: no focal neuro deficits Psych: calm, cooperative, AAO x 3 Assessment/plan: 80 yo M with a hx of COPD, HTN, DM2, Afib (s/p pacemaker 2015) on xarelto neuropathy, PAD (s/p R fem/pop bypass 2016), skin cancer, brought to [facility] by EMS, after his family became concerned over his overall state of health and significant failure to thrive. Admitted for management of CELESTINO, constipation, and failure to thrive. Switched to ALC status on 12/04/2020 and has been working with PT since. # Bilateral Chronic DVTs, non occlusive. takes xarelto 20 mg daily but endorses noncompliance with some doses. Continue with Xarelto given that he admits to noncompliance sometimes. Switching him to Lovenox will probably lead to even more noncompliance as he will have to inject himself twice daily. The DVTs are chronic and not necessarily treatment failure. # COPD in mild acute exacerbation: Now resolved. Saturating well on room air. Continue inhalers scheduled and as needed. No additional prednisone needed at this time. # Respiratory failure with Hypoxia: This is likely secondary to his COPD exacerbation. Resolved. # R pleural effusion: possibly related to underlying CHF. patient has refused CT chest to further evaluate pleural effusion. Continue with plan of gentle diuresis with Lasix for ~1 month and then follow up with PCP. # Enteroccus UTI: leukocytosis resolved. pansensitive. Had augmentin PO for 7 days, Finished course of abx. Resolved # Bilateral LE edema, R > L: in context of chronic DVTs. Unchanged from prior. # Afib s/p pacemaker: AC with xarelto 20 mg daily. paced rhythm, rate controlled # AAA (3.4 cm), infrarenal: Follow up with PCP for monitoring. # Depression: started sertraline. Psychiatry Dr weeks consulted. # CELESTINO/Rhabdomyolysis. resolved with CIFs. bilateral non obstructing renal stones on US # Bilateral adrenal hyperplasia: Fu check renin, aldosterone # DM2 with neuropathy. ISS, AC and HS. CC diet. a1c 5. LDL 41. HDL 27. resume gabapentin c/w simvastatin 10 mg daily # PAD with severe xerosis and keratosis of bilateral legs. Recommendation from Podiatry appreciated. # Constipation: Continue miralax daily. dulcolax suppository. soap suds enema # Chronic back pain/Severe spinal stenosis. 8/10 back pain, severely impeding mobility. unable to obtain MRI due to pacemaker. does not wish for surgical intervention. lidocaine patch, heating pad. norco prn. Wheelchair & bedside commode are necessary as indicated above. # HTN: on amlodipine, lisinopril. # Hypothyroidism: takes levothyroxine 88 mc daily # BPH c/w flomax # DVT ppx: xarelto Dispo: Home with services when sufficiently safe arrangements can be made VS,Yeny, I+O VS, Fishbone, I+O Laboratory Tests 12/10/20 11:56 Vital Signs Date Time Temp Pulse Resp B/P (MAP) Pulse Ox O2 Delivery O2 Flow Rate FiO2 12/10/20 09:30 61 162/80 12/10/20 06:00 97.6 18 93 12/09/20 06:00 Room Air I&O- Last 24 Hours up to 6 AM 12/10/20 06:00 Intake Total 490 ml Output Total 750 ml Balance -260 ml YAS NIXON DO Dec 10, 2020 13:28
[2020-12-10] MEDS: RIVAROXABAN 20 MG TAB (XARELTO) PO SCH (18:19)
[2020-12-10] MEDS: **NOTE PATIENT COMMENT** MISC XX SCH (21:00)
[2020-12-10] MEDS: SIMVASTATIN 10 MG TAB PO SCH (21:16)
[2020-12-10] MEDS: LATANOPROST 0.005% OPHTH SOLN 2.5 ML OD SCH (21:17)
[2020-12-11] MEDS: LEVOTHYROXINE 88MCG TABLET (0.088 MG) PO SCH (05:34)
[2020-12-11 06:00] VITALS: BP 150/76
[2020-12-11 07:46] LABS: HEMATOCRIT 41.1 % (42.0-52.0); HEMOGLOBIN 13.1 g/dl (13.5-17.5); MEAN CORPUSCULAR HEMOGLOBIN 30.8 pg (27.0-33.0); MEAN CORPUSCULAR HGB CONC 31.9 g/dl (32.0-36.5); MEAN CORPUSCULAR VOLUME 96.5 fl (80.0-96.0); PLATELET COUNT, AUTOMATED 303 10^3/uL (150-450); RED BLOOD COUNT 4.26 10^6/uL (4.30-6.10); WHITE BLOOD COUNT 9.1 10^3/uL (4.0-10.0)
[2020-12-11] MEDS: IPRATROPIUM 0.5MG/ALBUTEROL 2.5MG INH SOL UD 3ML (DUONEB) NEB SCH (07:57)
[2020-12-11 08:05] LABS: BLOOD UREA NITROGEN 24 MG/DL (7-18); CALCIUM LEVEL 8.3 MG/DL (8.8-10.2); CARBON DIOXIDE LEVEL 34 MEQ/L (21-32); CHLORIDE LEVEL 103 MEQ/L (98-107); CREATININE FOR GFR 1.08 MG/DL (0.70-1.30); GLOMERULAR FILTRATION RATE > 60.0 (>42); GLUCOSE, FASTING 158 MG/DL (70-100); SODIUM LEVEL 140 MEQ/L (136-145)
[2020-12-11] MEDS: DOCUSATE SODIUM 100MG CAPSULE PO SCH (08:34)
[2020-12-11] MEDS: HumaLOG INSULIN (NovoLOG) PER UNIT SC SCH ×2 (08:34→11:49)
[2020-12-11] MEDS: MIRALAX *UNIT DOSE* 17GM PACKET PO SCH (08:34)
[2020-12-11] MEDS: BISACODYL 10 MG SUPP PR SCH (08:34)
[2020-12-11 08:35] VITALS: BP 147/75
[2020-12-11] MEDS: TIMOLOL MALEATE 0.25% OPHTH SOLN 5 ML OD SCH (08:35)
[2020-12-11] MEDS: FUROSEMIDE 40 MG TAB PO SCH (08:35)
[2020-12-11] MEDS: TAMSULOSIN 0.4 MG CAP PO SCH (08:35)
[2020-12-11] MEDS: SERTRALINE HCL 50 MG TAB PO SCH (08:35)
[2020-12-11] MEDS: LACTIC ACID 12% LOTION 225 GM BTL TOP SCH (08:36)
[2020-12-11] MEDS ORDERED: LAC-LOT2 TOP (10:58)
[2020-12-11] MEDS ORDERED: ZOLO50TA PO (11:01)
--- NOTE | 2020-12-11 11:05 | DS.PDOC ---
Discharge Summary General Date of Admission Nov 30, 2020 at 19:07 Date of Discharge 12/11/20 Discharge Summary if discharge summary is needed urgently, pls have community chest officer call [employer]type at [phone] cassidy's discharge summary [id number] Vital Signs/I&Os Vital Signs Date Time Temp Pulse Resp B/P (MAP) Pulse Ox O2 Delivery O2 Flow Rate FiO2 12/11/20 08:35 73 147/75 12/11/20 06:00 97.8 17 96 Room Air I&O- Last 24 Hours up to 6 AM 12/11/20 06:00 Intake Total 2320 ml Output Total 1750 ml Balance 570 ml Laboratory Data Labs 24H Laboratory Tests 2 12/10/20 11:41: Bedside Glucose (Misc Panel) 145H 12/10/20 11:56: Nucleated Red Blood Cells % (auto) 0.0, Anion Gap 4L, Glomerular Filtration Rate > 60.0, Calcium Level 8.3L 12/10/20 17:43: Bedside Glucose (Misc Panel) 159H 12/10/20 21:15: Bedside Glucose (Misc Panel) 202H 12/11/20 07:23: Nucleated Red Blood Cells % (auto) 0.0, Anion Gap 3L, Glomerular Filtration Rate > 60.0, Calcium Level 8.3L CBC/BMP Laboratory Tests 12/10/20 11:56 12/11/20 07:23 FSBS Laboratory Tests Test 12/10/20 11:41 12/10/20 17:43 12/10/20 21:15 Range/Units Bedside Glucose (Misc Panel) 145 159 202 83-110 MG/DL Microbiology Microbiology 12/02/20 Blood Culture - Final, Complete NO GROWTH AFTER 5 DAYS 12/02/20 Blood Culture - Final, Complete NO GROWTH AFTER 5 DAYS Discharge Medications Scheduled Amlodipine Besylate (Amlodipine Besylate) 10 Mg Tablet, 10 MG PO DAILY, (Reported) Ammonium Lactate (Lac-Hydrin Five) 226 Gm Lotion, 1 APLCT TOP DAILY Gabapentin (Gabapentin) 300 Mg Capsule, 300 MG PO BID, (Reported) Levothyroxine Sodium (Levothyroxine Sodium) 88 Mcg Tablet, 88 MCG PO DAILY, (Reported) Lisinopril (Lisinopril) 10 Mg Tablet, 30 MG PO DAILY, (Reported) Metformin HCl (Metformin HCl) 500 Mg Tablet, 500 MG PO BIDWM, (Reported) Rivaroxaban (Xarelto) 20 Mg Tablet, 20 MG PO DAILY, (Reported) Sertraline Hcl (Zoloft) 50 Mg Tablet, 50 MG PO DAILY Simvastatin (Simvastatin) 10 Mg Tablet, 10 MG PO QHS, (Reported) Tamsulosin Hcl (Tamsulosin HCl) 0.4 Mg Capsule, 0.4 MG PO DAILY, (Reported) Allergies Coded Allergies: Sulfa (Sulfonamide Antibiotics) (Verified Allergy, Unknown, 11/30/20) KATERINA CASSIDY MD Dec 11, 2020 11:05
--- NOTE | 2020-12-11 11:50 | DSES ---
DISCHARGE SUMMARY DATE OF ADMISSION: 11/30/2020 DATE OF DISCHARGE: 12/11/2020 The patient was changed to ALC status on 12/04/2020. CONSULTANTS: 1. Dr. Cachorro Muñoz, health and social care teacher. 2. Dr. Kirby Bridges, psychiatrist. PRIMARY DISCHARGE DIAGNOSES: 1. Bilateral chronic deep venous thromboses, nonocclusive. 2. Chronic obstructive pulmonary disease with mild acute exacerbation. 3. Chronic hypoxic respiratory failure on supplemental oxygen. 4. Right-sided pleural effusion due to congestive heart failure. 5. Enterococcus urinary tract infection. 6. Chronic atrial fibrillation status post pacemaker on chronic anticoagulation. 7. Chronic abdominal aortic aneurysm infrarenal 3.4 cm. 8. Acute kidney injury. 9. Rhabdomyolysis. 10. Depression. 11. Bilateral adrenal hyperplasia. 12. Type-2 diabetes with neuropathy. 13. Peripheral arterial disease bilateral lower extremities. 14. Chronic constipation. 15. Chronic back pain. 16. Wheelchair bound. 17. Severe spinal stenosis. 18. Hypertension. 19. Hypothyroidism. 20. Benign prostatic hypertrophy. 21. Dysthymia. DISCHARGE MEDICATIONS: 1. Zoloft 50 mg daily. 2. Lac-Hydrin topically to affected areas. 3. Norvasc 10 daily. 4. Gabapentin 300 twice a day. 5. Synthroid 88 mcg daily. 6. Lisinopril 30 daily. 7. Metformin 500 twice a day with meals. 8. Xarelto 20 daily. 9. Simvastatin 10 once daily at bedtime. 10. Flomax 0.4 mg daily. HOSPITAL COURSE: This is a 80-year-old male who presented to the Emergency Room on November 30 with complaints of failure to thrive. The patient was disheveled and lethargic when he was brought in with no bowel movements for the past two months. The patient was admitted for failure to thrive, acute kidney injury, and chronic constipation. He was kept on his chronic medications, Xarelto for his chronic DVTs and due to mild COPD exacerbation he was treated with steroids, nebulizers which improved. He was seen by Dr. Muñoz on 12/02/2020 due to thick painful nails, peripheral arterial disease, and dry skin. His nails were debrided manually with electric bur times nine with ammonium lactate 12% lotion applied twice a day. He was continued on his home medications, Norvasc, Gabapentin, Levothyroxine, Lisinopril, Xarelto, Simvastatin and Flomax. The patient was seen by Dr. Kirby Bridges, psychiatrist, on 12/02/2020 due to dysthymia with recommendations to start the patient on Zoloft 50 mg daily. PHYSICAL EXAM ON DISCHARGE: Temperature 97.8, pulse 60, respiratory rate 17, blood pressure 150/76, 96% on room air. Generally no respiratory distress. Speaks in full sentences. No jugular venous distention (JVD), thyromegaly. Lungs are clear to auscultation, no wheezing or rales. Heart: S1, S2 sinus rhythm. Abdomen is soft, nontender, nondistended. Extremities: Right second toe amputation. Bilateral 1+ pitting edema. He has keratosis on distal feet, stage I coccyx decubitus. LABORATORY DATA ON DISCHARGE: White count 9.1, hemoglobin 13, hematocrit 41, platelet count 303. Sodium 140, potassium 4, chloride 103, bicarb 34, BUN 24, creatinine 1, glucose of 158. On 11/30/2020, urine culture Enterococcus faecalis. Time spent on discharge 30 minutes. MTDD
== END 2020-12-11 15:10 | disposition home health service (06) | DRG 683 ==
LOC: EDBD 13:30 → M ED 13:30 → M ED INP 19:07 → ENRESERV 20:06 → M MSPAV 21:58
PROVIDERS: ADMIT Family Medicine; ATTEND General Practice
DX: N17.9 Acute kidney failure, unspecified (principal); N39.0 Urinary tract infection, site not specified; J44.1 Chronic obstructive pulmonary disease with (acute) exacerbation; M62.82 Rhabdomyolysis; I82.512 Chronic embolism and thrombosis of left femoral vein; I48.20 Chronic atrial fibrillation, unspecified; J96.11 Chronic respiratory failure with hypoxia; K59.00 Constipation, unspecified; E03.9 Hypothyroidism, unspecified; I11.0 Hypertensive heart disease with heart failure; F32.9 Major depressive disorder, single episode, unspecified; E11.40 Type 2 diabetes mellitus with diabetic neuropathy, unspecified; N40.0 Benign prostatic hyperplasia without lower urinary tract symptoms; I50.9 Heart failure, unspecified; Z95.0 Presence of cardiac pacemaker; I71.4 Abdominal aortic aneurysm, without rupture; E11.51 Type 2 diabetes mellitus with diabetic peripheral angiopathy without gangrene; Z79.899 Other long term (current) drug therapy; Z85.820 Personal history of malignant melanoma of skin; E78.5 Hyperlipidemia, unspecified; Z96.642 Presence of left artificial hip joint; Z88.2 Allergy status to sulfonamides; F34.1 Dysthymic disorder